=== PATIENT | male | born 1950 | race Caucasian/White ===

== ENCOUNTER → 2016-11-04 | Outpatient (REF) | payer MEDICARE, MEDICAID ==
[~2016-11-04] MED LIST: AMLO2.5T PO; ASPI1TAB PO; ATOR1TAB18 PO; BISO5TAB5 PO; ELIQ5TAB PO; METO25TAB PO; PLAV75TA38 PO; POTA10CA PO; PROA1AER INH
[2016-11-04 12:00] LABS: VITAMIN B12 LEVEL 371 PG/ML (247-911)
[2016-11-04 12:14] LABS: ALBUMIN 4.2 GM/DL (3.2-5.2); ALKALINE PHOSPHATASE 125 U/L (45-117); ALT/SGPT 30 U/L (12-78); ANION GAP 9 MEQ/L (8-16); AST/SGOT 22 U/L (15-37); BILIRUBIN,TOTAL 0.3 MG/DL (0.2-1.0); BLOOD UREA NITROGEN 22 MG/DL (7-18); CALCIUM LEVEL 9.5 MG/DL (8.8-10.2); CARBON DIOXIDE LEVEL 29 MEQ/L (21-32); CHLORIDE LEVEL 104 MEQ/L (98-107); CHOLESTEROL LEVEL 151 MG/DL (<200); CREATININE FOR GFR 1.57 MG/DL (0.70-1.30); FREE T4 0.87 NG/DL (0.76-1.46); GLOMERULAR FILTRATION RATE 47.3 (>49); GLUCOSE, FASTING 100 MG/DL (80-110); POTASSIUM SERUM 4.7 MEQ/L (3.5-5.1); SODIUM LEVEL 142 MEQ/L (136-145); TOTAL PROTEIN 7.7 GM/DL (6.4-8.2); TRIGLYCERIDES LEVEL 355 MG/DL (<150)
== END ==
LOC: M SFHCPLAZ 09:28
PROVIDERS: ATTEND Family Medicine
DX: E78.2 Mixed hyperlipidemia (principal); E55.9 Vitamin D deficiency, unspecified; E53.8 Deficiency of other specified B group vitamins
CPT/HCPCS: 36415; 80053; 80061; 82550; 82607; 83970; 84439; 84443; 86140; G0463

== ENCOUNTER → 2017-03-17 | Outpatient (REF) | payer MEDICARE, MEDICAID ==
[2017-03-17 13:28] LABS: BASO % 0.5 % (0.0-1.0); EOS # 0.2 K/mm3 (0.0-0.50); LARGE UNSTAINED CELL # 0.1 K/mm3 (0.0-0.4); LARGE UNSTAINED CELL % 2.1 % (0.0-4.0); LYMPH # 1.8 K/mm3 (1.5-4.5); LYMPH % 32.2 % (24.0-44.0); MEAN CORPUSCULAR HEMOGLOBIN 32.6 pg (27.0-33.0); MEAN CORPUSCULAR HGB CONC 33.6 g/dl (32.0-36.5); MONO # 0.3 K/mm3 (0.0-0.8); MONO % 5.8 % (0.0-5.0); NEUTROPHILS # 2.9 K/mm3 (1.8-7.7); NEUTROPHILS % 56.4 % (36.0-66.0); PLATELET COUNT, AUTOMATED 215 k/mm3 (150-450); RED CELL DISTRIBUTION WIDTH 13.9 % (11.5-14.5); WHITE BLOOD COUNT 5.1 K/mm3 (4.0-10.0)
[2017-03-17 13:40] LABS: ALBUMIN 3.9 GM/DL (3.2-5.2); ALBUMIN/GLOBULIN RATIO 1.03 (1.00-1.93); BILIRUBIN,TOTAL 0.3 MG/DL (0.2-1.0); CALCIUM LEVEL 9.4 MG/DL (8.8-10.2); CREATININE FOR GFR 1.46 MG/DL (0.70-1.30); GLOMERULAR FILTRATION RATE 51.4 (>49); POTASSIUM SERUM 4.6 MEQ/L (3.5-5.1); TOTAL PROTEIN 7.7 GM/DL (6.4-8.2)
== END ==
LOC: M SFHCPLAZ 10:49
PROVIDERS: ATTEND Family Medicine
DX: I12.9 Hypertensive chronic kidney disease with stage 1 through stage 4 chronic kidney disease, or unspecified chronic kidney disease (principal); N18.3 Chronic kidney disease, stage 3 (moderate); R73.01 Impaired fasting glucose
CPT/HCPCS: 80053; 83036; 83735; 83880; 83970; 85025; G0463

== ENCOUNTER → 2017-07-20 | Outpatient (REF) | payer MEDICARE, MEDICAID ==
[~2017-07-20] MED LIST changes: -ATOR1TAB18 PO; +ATOR80TA59 PO; +PLAV1TAB2 PO; -PLAV75TA38 PO; -PROA1AER INH; +PROAAER10 INH
[2017-07-20 14:01] LABS: BASO % 0.5 % (0.0-1.0); EOS # 0.2 10^3/uL (0.0-0.50); EOS % 2.7 % (0.0-3.0); IMMATURE GRANULOCYTE % 0.3 % (0-0); LYMPH # 1.7 10^3/uL (1.5-4.5); MEAN CORPUSCULAR HEMOGLOBIN 32.6 pg (27.0-33.0); MEAN CORPUSCULAR HGB CONC 33.4 g/dl (32.0-36.5); MEAN CORPUSCULAR VOLUME 97.4 fl (80.0-96.0); MONO # 0.4 10^3/uL (0.0-0.8); MONO % 7.5 % (0.0-5.0); NEUTROPHILS # 3.5 10^3/uL (1.8-7.7); PLATELET COUNT, AUTOMATED 250 10^3/uL (150-450); RED CELL DISTRIBUTION WIDTH 14.3 % (11.5-14.5); RETIC HEMOGLOBIN EQUIVALENT 38.8 pg (24-36); RETICULOCYTE % 1.5 % (0.5-1.5); WHITE BLOOD COUNT 5.9 10^3/uL (4.0-10.0)
[2017-07-20 14:16] LABS: VITAMIN B12 LEVEL 249 PG/ML (247-911)
[2017-07-20 14:43] LABS: ALBUMIN/GLOBULIN RATIO 1.11 (1.00-1.93); ALKALINE PHOSPHATASE 116 U/L (45-117); ALT/SGPT 33 U/L (12-78); ANION GAP 8 MEQ/L (8-16); AST/SGOT 25 U/L (15-37); BILIRUBIN,TOTAL 0.3 MG/DL (0.2-1.0); BLOOD UREA NITROGEN 24 MG/DL (7-18); CALCIUM LEVEL 9.3 MG/DL (8.8-10.2); CARBON DIOXIDE LEVEL 28 MEQ/L (21-32); CHLORIDE LEVEL 103 MEQ/L (98-107); CREATININE FOR GFR 1.58 MG/DL (0.70-1.30); GLOMERULAR FILTRATION RATE 46.8 (>49); GLUCOSE, FASTING 98 MG/DL (80-110); POTASSIUM SERUM 4.6 MEQ/L (3.5-5.1); SODIUM LEVEL 139 MEQ/L (136-145); TOTAL PROTEIN 7.6 GM/DL (6.4-8.2)
[2017-07-24 10:47] LABS: ALBUMIN 4.27 GM/DL (3.29-5.55); ALBUMIN % 56.2 % (55.8-66.1); GAMMA GLOBULIN % 16.8 % (11.1-18.8)
== END ==
LOC: M SFHCPLAZ 10:43
PROVIDERS: ATTEND Family Medicine
DX: R73.01 Impaired fasting glucose (principal); E53.8 Deficiency of other specified B group vitamins; Z12.5 Encounter for screening for malignant neoplasm of prostate
CPT/HCPCS: 80053; 81001; 82043; 82607; 83036; 83525; 84165; 85025; 85046; G0103

== ENCOUNTER → 2017-09-11 | Outpatient (CLI) | payer MEDICARE, MEDICAID ==
[2017-09-11 11:13] LABS: MEAN CORPUSCULAR HEMOGLOBIN 31.9 pg (27.0-33.0); MEAN CORPUSCULAR HGB CONC 32.8 g/dl (32.0-36.5); MEAN CORPUSCULAR VOLUME 97.2 fl (80.0-96.0); PLATELET COUNT, AUTOMATED 256 10^3/uL (150-450); RED CELL DISTRIBUTION WIDTH 14.1 % (11.5-14.5)
[2017-09-11 11:33] LABS: ALBUMIN 3.9 GM/DL (3.2-5.2); CALCIUM LEVEL 9.4 MG/DL (8.8-10.2); CREATININE FOR GFR 1.61 MG/DL (0.70-1.30); GLOMERULAR FILTRATION RATE 45.8 (>49); PHOSPHORUS LEVEL 2.8 MG/DL (2.5-4.9); POTASSIUM SERUM 4.3 MEQ/L (3.5-5.1)
== END ==
LOC: M LAB 10:48
PROVIDERS: ATTEND Nurse Practitioner Family
DX: I11.9 Hypertensive heart disease without heart failure (principal)

== ENCOUNTER → 2017-10-26 | Outpatient (REF) | payer MEDICARE, MEDICAID ==
[2017-10-26 16:09] LABS: BASO % 0.5 % (0.0-1.0); EOS # 0.1 10^3/uL (0.0-0.50); EOS % 2.2 % (0.0-3.0); HEMATOCRIT 37.6 % (42.0-52.0); HEMOGLOBIN 12.4 g/dl (14.0-18.0); IMMATURE GRANULOCYTE % 0.5 % (0-0); LYMPH # 1.8 10^3/uL (1.5-4.5); LYMPH % 29.6 % (24.0-44.0); MEAN CORPUSCULAR HEMOGLOBIN 32.1 pg (27.0-33.0); MEAN CORPUSCULAR VOLUME 97.4 fl (80.0-96.0); MONO # 0.6 10^3/uL (0.0-0.8); MONO % 9.3 % (0.0-5.0); NEUTROPHILS # 3.4 10^3/uL (1.8-7.7); NEUTROPHILS % 57.9 % (36.0-66.0); PLATELET COUNT, AUTOMATED 266 10^3/uL (150-450); RED BLOOD COUNT 3.86 10^6/uL (4.30-6.10); RED CELL DISTRIBUTION WIDTH 13.9 % (11.5-14.5); WHITE BLOOD COUNT 5.9 10^3/uL (4.0-10.0)
[2017-10-26 18:14] LABS: VITAMIN B12 LEVEL 555 PG/ML (247-911)
[2017-10-26 18:38] LABS: FERRITIN 121 NG/ML (26-388); IRON (FE) 83 UG/DL (65-175); PERCENT SATURATION 23.1 % (19.7-50.0); TOTAL IRON BINDING CAPACITY 359 UG/DL (250-450)
[2017-10-31 00:07] LABS: ANTI-PARIETAL CELL ANTIBODY 25.5 Units (0.0-20.0)
[2017-10-31 00:07] LABS: INTRINSIC FACTOR ANTIBODY 0.9 AU/mL (0.0-1.1)
== END ==
LOC: M SFHCPLAZ 12:03
DX: D64.9 Anemia, unspecified (principal)
CPT/HCPCS: 83550

== ENCOUNTER 2018-02-03 12:08 | Emergency (ER) | payer MEDICARE, MEDICAID | END 2018-02-03 13:03 | disposition home or self-care (01) | LOC: M ED 12:08 | DX: S29.012A Strain of muscle and tendon of back wall of thorax, initial encounter (principal); X58.XXXA Exposure to other specified factors, initial encounter; Y92.89 Other specified places as the place of occurrence of the external cause; I25.10 Atherosclerotic heart disease of native coronary artery without angina pectoris; I25.2 Old myocardial infarction; I10 Essential (primary) hypertension; J44.9 Chronic obstructive pulmonary disease, unspecified; Z95.5 Presence of coronary angioplasty implant and graft; Z87.891 Personal history of nicotine dependence; Z91.013 Allergy to seafood; Z88.0 Allergy status to penicillin; Z91.018 Allergy to other foods; Z79.01 Long term (current) use of anticoagulants; Z79.899 Other long term (current) drug therapy | CPT/HCPCS: 93005 ==

== ENCOUNTER 2018-02-19 06:11 | Emergency (ER) | payer MEDICARE, MEDICAID ==
[2018-02-19] MEDS: NORCO, ANEXSIA 5/325MG TABLET (HYDROcodone/ACETAMINOPHEN) PO (07:24)
== END 2018-02-19 07:30 | disposition home or self-care (01) ==
LOC: M ED 06:11
DX: S49.92XA Unspecified injury of left shoulder and upper arm, initial encounter (principal); X58.XXXA Exposure to other specified factors, initial encounter; Y92.89 Other specified places as the place of occurrence of the external cause; J44.9 Chronic obstructive pulmonary disease, unspecified; I25.2 Old myocardial infarction; I10 Essential (primary) hypertension; J45.909 Unspecified asthma, uncomplicated; Z95.5 Presence of coronary angioplasty implant and graft; F17.200 Nicotine dependence, unspecified, uncomplicated; Z88.0 Allergy status to penicillin; Z91.013 Allergy to seafood; Z91.018 Allergy to other foods; Z79.899 Other long term (current) drug therapy; Z79.01 Long term (current) use of anticoagulants; Z79.02 Long term (current) use of antithrombotics/antiplatelets
CPT/HCPCS: 73030

== ENCOUNTER → 2018-07-13 | Outpatient (REF) | payer MEDICARE, MEDICAID ==
[2018-07-13 12:02] LABS: BASO % 0.7 % (0.0-1.0); EOS # 0.2 10^3/uL (0.0-0.50); EOS % 3.2 % (0.0-3.0); HEMATOCRIT 39.3 % (42.0-52.0); HEMOGLOBIN 12.8 g/dl (13.5-17.5); IMMATURE GRANULOCYTE % 0.4 % (0-3.0); LYMPH # 1.6 10^3/uL (1.5-4.5); LYMPH % 28.5 % (24.0-44.0); MEAN CORPUSCULAR HEMOGLOBIN 32.9 pg (27.0-33.0); MEAN CORPUSCULAR HGB CONC 32.6 g/dl (32.0-36.5); MONO # 0.5 10^3/uL (0.0-0.8); MONO % 8.5 % (0.0-5.0); NEUTROPHILS # 3.3 10^3/uL (1.8-7.7); NEUTROPHILS % 58.7 % (36.0-66.0); PLATELET COUNT, AUTOMATED 278 10^3/uL (150-450); RED BLOOD COUNT 3.89 10^6/uL (4.30-6.10); RED CELL DISTRIBUTION WIDTH 13.8 % (11.5-14.5); RETIC HEMOGLOBIN EQUIVALENT 36.8 pg (24-36); RETICULOCYTE # 55.6 10^9/L (17-77); RETICULOCYTE % 1.4 % (0.5-1.5); WHITE BLOOD COUNT 5.6 10^3/uL (4.0-10.0)
[2018-07-13 12:12] LABS: APPEARANCE, URINE CLEAR (CLEAR); BACTERIA, URINE AUTO NEGATIVE (NEGATIVE); BILIRUBIN, URINE AUTO NEGATIVE (NEGATIVE); BLOOD, URINE BLOOD NEGATIVE (NEGATIVE); COLOR, URINE YELLOW (YELLOW); GLUCOSE, URINE (UA) AUTO NEGATIVE (NEGATIVE); KETONE, URINE AUTO NEGATIVE (NEGATIVE); LEUKOCYTE ESTERASE, URINE AUTO NEGATIVE (NEGATIVE); NITRITE, URINE AUTO NEGATIVE (NEGATIVE); PROTEIN, URINE AUTO NEGATIVE (NEGATIVE); RBC, URINE AUTO 0 /HPF (0-3); SPECIFIC GRAVITY URINE AUTO 1.014 (1.002-1.035); SQUAMOUS EPITHELIAL CELL UR AU 0 /HPF (0-6); UROBILINOGEN, URINE AUTO 0.2 mg/dL (0.0-2.0); WBC, URINE AUTO 0 /HPF (0-3)
[2018-07-13 12:42] LABS: ALBUMIN 4.1 GM/DL (3.2-5.2); ALBUMIN/GLOBULIN RATIO 1.11 (1.00-1.93); ALKALINE PHOSPHATASE 91 U/L (45-117); ALT/SGPT 40 U/L (12-78); ANION GAP 8 MEQ/L (8-16); AST/SGOT 26 U/L (7-37); BILIRUBIN,TOTAL 0.3 MG/DL (0.2-1.0); BLOOD UREA NITROGEN 19 MG/DL (7-18); CALCIUM LEVEL 9.7 MG/DL (8.8-10.2); CARBON DIOXIDE LEVEL 29 MEQ/L (21-32); CHLORIDE LEVEL 104 MEQ/L (98-107); CREATININE FOR GFR 1.38 MG/DL (0.70-1.30); GLOMERULAR FILTRATION RATE 54.7 (>49); GLUCOSE, FASTING 95 MG/DL (70-100); POTASSIUM SERUM 4.9 MEQ/L (3.5-5.1); PSA SCREENING 0.23 NG/ML (< 4.0); SODIUM LEVEL 141 MEQ/L (136-145); TOTAL PROTEIN 7.8 GM/DL (6.4-8.2)
[2018-07-13 12:47] LABS: PTH INTACT 53.4 PG/ML (18.5-88.0)
[2018-07-13 13:41] LABS: MALB URINE SIEMENS 17.9 MG/L
[2018-07-13 13:42] LABS: MAU/CREAT RATIO 13.3 MCG/MG (0.0-30.0)
[2018-07-13 14:45] LABS: ESTIMATED AVERAGE GLUCOSE 123 MG/DL (60-110); HEMOGLOBIN A1c 5.9 %
== END ==
LOC: M SFHCPLAZ 08:03
DX: E53.8 Deficiency of other specified B group vitamins (principal); E55.9 Vitamin D deficiency, unspecified; R73.01 Impaired fasting glucose; Z12.5 Encounter for screening for malignant neoplasm of prostate
CPT/HCPCS: 82607

== ENCOUNTER → 2018-12-04 | Outpatient (REF) | payer MEDICARE, MEDICAID ==
[~2018-12-04] MED LIST changes: +ACET30TAB PO; -AMLO2.5T PO; +AMLO2.5T3 PO; +BREO1INH3; +CLOP75TA2; +CYCL5TAB PO; +KLOR10TA76 PO; +NORCOTAB PO; -POTA10CA PO
[2018-12-04 12:09] LABS: BASO % 0.5 % (0.0-1.0); EOS # 0.2 10^3/uL (0.0-0.50); EOS % 3.7 % (0.0-3.0); HEMATOCRIT 38.3 % (42.0-52.0); LYMPH # 1.5 10^3/uL (1.5-4.5); LYMPH % 26.1 % (24.0-44.0); MEAN CORPUSCULAR HEMOGLOBIN 32.4 pg (27.0-33.0); MEAN CORPUSCULAR HGB CONC 33.9 g/dl (32.0-36.5); MEAN CORPUSCULAR VOLUME 95.5 fl (80.0-96.0); MONO # 0.6 10^3/uL (0.0-0.8); MONO % 9.9 % (0.0-5.0); NEUTROPHILS # 3.4 10^3/uL (1.8-7.7); NEUTROPHILS % 59.3 % (36.0-66.0); PLATELET COUNT, AUTOMATED 311 10^3/uL (150-450); RED BLOOD COUNT 4.01 10^6/uL (4.30-6.10); WHITE BLOOD COUNT 5.8 10^3/uL (4.0-10.0)
[2018-12-04 12:35] LABS: HEMATOCRIT 38.3 % (42.0-52.0)
[2018-12-04 12:43] LABS: HEMOGLOBIN A1c 6.5 %
[2018-12-04 12:54] LABS: ALT/SGPT 40 U/L (12-78); BLOOD UREA NITROGEN 22 MG/DL (7-18); CALCIUM LEVEL 9.2 MG/DL (8.8-10.2); CARBON DIOXIDE LEVEL 28 MEQ/L (21-32); CHLORIDE LEVEL 101 MEQ/L (98-107); GLOMERULAR FILTRATION RATE 49.5 (>49); GLUCOSE, FASTING 94 MG/DL (70-100); POTASSIUM SERUM 4.6 MEQ/L (3.5-5.1); PTH INTACT 60.5 PG/ML (18.5-88.0); SODIUM LEVEL 138 MEQ/L (136-145)
[2018-12-04 12:55] LABS: BILIRUBIN,TOTAL 0.2 MG/DL (0.2-1.0); FREE T4 0.86 NG/DL (0.76-1.46); TOTAL PROTEIN 7.8 GM/DL (6.4-8.2); VITAMIN B12 LEVEL 1980 PG/ML (247-911)
[2018-12-06 13:07] LABS: ALBUMIN 4.49 GM/DL (3.29-5.55); ALBUMIN % 57.6 % (55.8-66.1); ALPHA-1-GLOBULIN % 3.5 % (2.9-4.9); ALPHA-1-GLOBULINS 0.27 GM/DL (0.17-0.41); ALPHA-2-GLOBULINS 0.81 GM/DL (0.42-0.99); ALPHA-2-GLOBULINS % 10.4 % (7.1-11.8); BETA-1-GLOBULINS 0.48 GM/DL (0.28-0.60); BETA-1-GLOBULINS % 6.2 % (4.7-7.2); BETA-2-GLOBULINS 0.51 GM/DL (0.19-0.55); BETA-2-GLOBULINS % 6.5 % (3.2-6.5); GAMMA GLOBULIN % 15.8 % (11.1-18.8); GAMMA GLOBULINS 1.23 GM/DL (0.65-1.58)
== END ==
LOC: M SFHCPLAZ 08:17
PROVIDERS: ATTEND Family Medicine
DX: D75.89 Other specified diseases of blood and blood-forming organs (principal); N18.3 Chronic kidney disease, stage 3 (moderate); E78.2 Mixed hyperlipidemia; R73.01 Impaired fasting glucose; E53.8 Deficiency of other specified B group vitamins

== ENCOUNTER 2019-06-23 09:06 | Emergency (ER) | payer MEDICARE, MEDICAID ==
[~2019-06-23] VITALS: Ht 165.1 cm; Wt 96.8 kg
[~2019-06-23 09:06] MED LIST changes: +ACET-716 PO; -ACET30TAB PO; -ASPI1TAB PO; +ASPI81TA26 PO; -BISO5TAB5 PO; +BISO5TAB9 PO; +HYDR-3715 PO; +METO1TAB63 PO; -METO25TAB PO; -NORCOTAB PO
[2019-06-23] MEDS ORDERED: ACETAMINOPHEN *IV* 1,000 MG in IV 1 EA IV ONE (09:30)
[2019-06-23] MEDS ORDERED: METF750T36 PO (09:36)
[2019-06-23] MEDS ORDERED: CALC1CAP31 PO (09:36)
[2019-06-23] MEDS ORDERED: AMLO10TA5 PO (09:36)
[2019-06-23] MEDS ORDERED: TOPR50TA PO (09:36)
[2019-06-23] MEDS ORDERED: NITR0.4S14 SL (09:36)
[2019-06-23 10:05] LABS: BASO % 0.3 % (0.0-1.0); EOS # 0.3 10^3/uL (0.0-0.5); EOS % 2.9 % (0.0-3.0); HEMATOCRIT 39.1 % (42.0-52.0); HEMOGLOBIN 13.1 g/dl (13.5-17.5); LYMPH # 1.4 10^3/uL (1.5-5.0); LYMPH % 15.1 % (24.0-44.0); MEAN CORPUSCULAR HEMOGLOBIN 32.4 pg (27.0-33.0); MEAN CORPUSCULAR HGB CONC 33.5 g/dl (32.0-36.5); MEAN CORPUSCULAR VOLUME 96.8 fl (80.0-96.0); MONO # 0.7 10^3/uL (0.0-0.8); MONO % 7.7 % (0.0-5.0); NEUTROPHILS # 6.9 10^3/uL (1.5-8.5); NEUTROPHILS % 73.6 % (36.0-66.0); PLATELET COUNT, AUTOMATED 281 10^3/uL (150-450); RED BLOOD COUNT 4.04 10^6/uL (4.30-6.10); WHITE BLOOD COUNT 9.4 10^3/uL (4.0-10.0)
[2019-06-23] MEDS ORDERED: CLEO300C2 PO (11:34)
[2019-06-23 11:46] VITALS: BP 164/82
== END 2019-06-23 12:07 | disposition home or self-care (01) ==
LOC: M ED 09:06
DX: K02.9 Dental caries, unspecified (principal); I10 Essential (primary) hypertension; J44.9 Chronic obstructive pulmonary disease, unspecified; J45.909 Unspecified asthma, uncomplicated; I25.10 Atherosclerotic heart disease of native coronary artery without angina pectoris; Z79.899 Other long term (current) drug therapy; Z79.01 Long term (current) use of anticoagulants; Z88.0 Allergy status to penicillin; F17.210 Nicotine dependence, cigarettes, uncomplicated
CPT/HCPCS: 80047; 85025; 96374; 99284; J0131

== ENCOUNTER → 2019-07-12 | Outpatient (REF) | payer MEDICARE, MEDICAID ==
[~2019-07-12] MED LIST changes: +AMLO10TA5 PO; +CALC1CAP31 PO; +CLEO300C2 PO; +METF750T36 PO; +NITR0.4S14 SL; +TOPR50TA PO
[2019-07-12 10:42] LABS: BASO # 0.1 10^3/uL (0.0-0.2); BASO % 0.7 % (0.0-1.0); EOS # 0.5 10^3/uL (0.0-0.5); EOS % 6.5 % (0.0-3.0); HEMATOCRIT 38.1 % (42.0-52.0); HEMOGLOBIN 12.6 g/dl (13.5-17.5); LYMPH # 2.2 10^3/uL (1.5-5.0); LYMPH % 30.8 % (24.0-44.0); MEAN CORPUSCULAR HEMOGLOBIN 32.3 pg (27.0-33.0); MEAN CORPUSCULAR HGB CONC 33.1 g/dl (32.0-36.5); MEAN CORPUSCULAR VOLUME 97.7 fl (80.0-96.0); MONO # 0.6 10^3/uL (0.0-0.8); MONO % 8.2 % (0.0-5.0); NEUTROPHILS # 3.7 10^3/uL (1.5-8.5); NEUTROPHILS % 53.4 % (36.0-66.0); PLATELET COUNT, AUTOMATED 278 10^3/uL (150-450)
[2019-07-12 11:57] LABS: ALBUMIN 3.8 GM/DL (3.2-5.2); ALT/SGPT 44 U/L (12-78); BILIRUBIN,TOTAL 0.9 MG/DL (0.2-1.0); BLOOD UREA NITROGEN 24 MG/DL (7-18); C REACTIVE PROTEIN QUANTITATIV 0.42 MG/DL (0.00-0.30); CALCIUM LEVEL 9.3 MG/DL (8.8-10.2); CARBON DIOXIDE LEVEL 27 MEQ/L (21-32); CHLORIDE LEVEL 103 MEQ/L (98-107); CHOLESTEROL LEVEL 187 MG/DL (<200); CHOLESTEROL RISK RATIO 4.675 (<5); CPK CREATINE PHOSPHOKINASE 143 U/L (39-308); FREE T4 0.79 NG/DL (0.76-1.46); GLOMERULAR FILTRATION RATE 53.7 (>49); GLUCOSE, FASTING 97 MG/DL (70-100); HDL CHOLESTEROL 40 MG/DL (>40); NON-HDL-C 147 MG/DL; POTASSIUM SERUM 4.5 MEQ/L (3.5-5.1); SODIUM LEVEL 140 MEQ/L (136-145); TOTAL PROTEIN 7.6 GM/DL (6.4-8.2); TRIGLYCERIDES LEVEL 735 MG/DL (<150)
[2019-07-12 12:14] LABS: HEMOGLOBIN A1c 5.9 %
== END ==
LOC: M SFHCPLAZ 08:07
PROVIDERS: ATTEND Family Medicine
DX: R73.01 Impaired fasting glucose (principal); E78.2 Mixed hyperlipidemia

== ENCOUNTER → 2019-11-11 | Outpatient (CLI) | payer MEDICARE, MEDICAID ==
[~2019-11-11] MED LIST changes: +BISO5TAB14 PO; -BISO5TAB9 PO
[2019-11-11 14:22] LABS: BASO % 0.6 % (0.0-1.0); EOS # 0.2 10^3/uL (0.0-0.5); EOS % 3.1 % (0.0-3.0); HEMATOCRIT 40.7 % (42.0-52.0); LYMPH % 28.1 % (24.0-44.0); MEAN CORPUSCULAR HEMOGLOBIN 31.3 pg (27.0-33.0); MEAN CORPUSCULAR HGB CONC 31.9 g/dl (32.0-36.5); MEAN CORPUSCULAR VOLUME 97.8 fl (80.0-96.0); MONO # 0.5 10^3/uL (0.0-0.8); MONO % 7.3 % (0.0-5.0); NEUTROPHILS # 4.3 10^3/uL (1.5-8.5); NEUTROPHILS % 60.3 % (36.0-66.0); PLATELET COUNT, AUTOMATED 276 10^3/uL (150-450); RED BLOOD COUNT 4.16 10^6/uL (4.30-6.10); WHITE BLOOD COUNT 7.1 10^3/uL (4.0-10.0)
[2019-11-11 14:27] LABS: ALBUMIN 4.1 GM/DL (3.2-5.2); ALT/SGPT 27 U/L (12-78); BILIRUBIN,TOTAL 0.3 MG/DL (0.2-1.0); BLOOD UREA NITROGEN 22 MG/DL (7-18); CALCIUM LEVEL 9.4 MG/DL (8.8-10.2); CARBON DIOXIDE LEVEL 30 MEQ/L (21-32); CHLORIDE LEVEL 103 MEQ/L (98-107); CHOLESTEROL LEVEL 151 MG/DL (<200); CHOLESTEROL RISK RATIO 4.194 (<5); CREATININE FOR GFR 1.49 MG/DL (0.70-1.30); GLOMERULAR FILTRATION RATE 49.8 (>49); GLUCOSE, FASTING 91 MG/DL (70-100); HDL CHOLESTEROL 36 MG/DL (>40); NON-HDL-C 115 MG/DL; POTASSIUM SERUM 4.4 MEQ/L (3.5-5.1); SODIUM LEVEL 138 MEQ/L (136-145); TOTAL PROTEIN 7.8 GM/DL (6.4-8.2); TRIGLYCERIDES LEVEL 442 MG/DL (<150)
[2019-11-11 14:31] LABS: PTH INTACT 74.1 PG/ML (18.5-88.0)
[2019-11-11 14:46] LABS: HEMOGLOBIN A1c 6.4 %
[2019-11-11 15:30] LABS: ERYTHROCYTE SEDIMENTATION RATE 15 mm/hr (0-20)
== END ==
LOC: M PLALAB 09:32
PROVIDERS: ATTEND Family Medicine
DX: Z12.5 Encounter for screening for malignant neoplasm of prostate (principal); D75.89 Other specified diseases of blood and blood-forming organs; R73.01 Impaired fasting glucose; E55.9 Vitamin D deficiency, unspecified; Z79.51 Long term (current) use of inhaled steroids; Z79.899 Other long term (current) drug therapy
CPT/HCPCS: 36415; 80053; 80061; 83036; 83525; 83970; 85025; 85652; G0103

== ENCOUNTER → 2020-04-01 | Outpatient (CLI) | payer MEDICARE, MEDICAID ==
[~2020-04-01] MED LIST changes: -AMLO10TA5 PO; +AMLO1TAB25 PO
[2020-04-01 12:38] LABS: BASO % 0.3 % (0.0-1.0); EOS # 0.2 10^3/uL (0.0-0.5); EOS % 2.5 % (0.0-3.0); HEMOGLOBIN 12.2 g/dl (13.5-17.5); LYMPH % 27.6 % (24.0-44.0); MEAN CORPUSCULAR HEMOGLOBIN 32.2 pg (27.0-33.0); MEAN CORPUSCULAR VOLUME 97.6 fl (80.0-96.0); MONO # 0.6 10^3/uL (0.0-0.8); MONO % 7.7 % (0.0-5.0); NEUTROPHILS # 4.5 10^3/uL (1.5-8.5); NEUTROPHILS % 61.5 % (36.0-66.0); PLATELET COUNT, AUTOMATED 262 10^3/uL (150-450); RED BLOOD COUNT 3.79 10^6/uL (4.30-6.10); WHITE BLOOD COUNT 7.3 10^3/uL (4.0-10.0)
[2020-04-01 13:20] LABS: ALT/SGPT 32 U/L (12-78); BILIRUBIN,TOTAL 0.3 MG/DL (0.2-1.0); BLOOD UREA NITROGEN 27 MG/DL (7-18); C REACTIVE PROTEIN QUANTITATIV < 0.30 MG/DL (0.00-0.30); CALCIUM LEVEL 9.6 MG/DL (8.8-10.2); CARBON DIOXIDE LEVEL 28 MEQ/L (21-32); CHLORIDE LEVEL 103 MEQ/L (98-107); CHOLESTEROL LEVEL 154 MG/DL (<200); CHOLESTEROL RISK RATIO 4.529 (<5); CPK CREATINE PHOSPHOKINASE 136 U/L (39-308); FREE T4 0.99 NG/DL (0.76-1.46); GLOMERULAR FILTRATION RATE 49.4 (>49); GLUCOSE, FASTING 83 MG/DL (70-100); HDL CHOLESTEROL 34 MG/DL (>40); NON-HDL-C 120 MG/DL; POTASSIUM SERUM 4.6 MEQ/L (3.5-5.1); SODIUM LEVEL 137 MEQ/L (136-145); TOTAL PROTEIN 7.8 GM/DL (6.4-8.2); TRIGLYCERIDES LEVEL 459 MG/DL (<150); VITAMIN B12 LEVEL 366 PG/ML (247-911)
[2020-04-01 13:40] LABS: HEMOGLOBIN A1c 6.1 %
== END ==
LOC: M PLALAB 09:21
PROVIDERS: ATTEND Family Medicine
DX: E78.2 Mixed hyperlipidemia (principal); E53.8 Deficiency of other specified B group vitamins; E55.9 Vitamin D deficiency, unspecified; R73.01 Impaired fasting glucose; E03.9 Hypothyroidism, unspecified

== ENCOUNTER → 2020-09-15 | Outpatient (REF) | payer MEDICARE, MEDICAID ==
[2020-09-15 14:19] LABS: ALBUMIN 3.9 GM/DL (3.2-5.2); ALT/SGPT 47 U/L (12-78); BILIRUBIN,TOTAL 0.3 MG/DL (0.2-1.0); BLOOD UREA NITROGEN 27 MG/DL (7-18); CARBON DIOXIDE LEVEL 31 MEQ/L (21-32); CHLORIDE LEVEL 104 MEQ/L (98-107); CHOLESTEROL LEVEL 183 MG/DL (<200); CHOLESTEROL RISK RATIO 4.945 (<5); CREATININE FOR GFR 1.53 MG/DL (0.70-1.30); GLOMERULAR FILTRATION RATE 48.1 (>42); GLUCOSE, FASTING 94 MG/DL (70-100); HDL CHOLESTEROL 37 MG/DL (>40); NON-HDL-C 146 MG/DL; PHOSPHORUS LEVEL 3.9 MG/DL (2.5-4.9); POTASSIUM SERUM 4.4 MEQ/L (3.5-5.1); SODIUM LEVEL 138 MEQ/L (136-145); THYROID PEROXIDASE ANTIBODY 76.9 U/ML (<60.0); TOTAL PROTEIN 7.8 GM/DL (6.4-8.2); TRIGLYCERIDES LEVEL 513 MG/DL (<150)
== END ==
LOC: M PLALAB 09:27
PROVIDERS: ATTEND Family Medicine
DX: E78.2 Mixed hyperlipidemia (principal); R73.01 Impaired fasting glucose

== ENCOUNTER 2020-12-11 11:11 | Emergency (ER) | payer MEDICARE, MEDICAID ==
[~2020-12-11] VITALS: Ht 160 cm; Wt 103.2 kg
--- OUTSIDE RECORDS SUMMARY | 2020-12-11 11:21 | CCD ---
Continuity of Care Document (CCD) Created on: 11/06/2020 Fasutino Dupont External Reference #: [id number] : [id number] Sex: Male Author Author Faustino MARCIAL MD Organization Unknown Address [facility] [place] [address] Phone [phone] Care Team Providers Care Drier Name Role Phone Greg Montiel MD AUTM [phone] Eugene Dai MD AUTM [phone] Reynaldo George MD AUTM [phone] Problems Active Problems Provider Date Patient post percutaneous transluminal coronary angiop lasty ARIELLE Escudero Onset: 02/23/2018 Paroxysmal atrial fibrillation ARIELLE Escudero Onset: 0 02/23/2018 Electrocardiogram abnormal ARIELLE Escudero Onset: 02/23 Mitral valve disorder ARIELLE Escudero Onset: 02/23/2018 Obesity ARIELLE Escudero Onset: 02/23/2018 Dietary management surveillance ARIELLE Escudero Onset: 02/23/2018 Atherosclerotic heart disease of [place] coronary arter y without angina pectoris ARIELLE Escudero Onset: 02/23/2018 Hypertensive heart disease without heart failure ARIELLE Perez Onset: 02/23/2018 Social History Type Date Description Comments Sex Unknown ETOH Use Occasionally consumes wine Tobacco Use Start: Unknown Heavy tobacco smoker (more than 10 cigarettes/day) quit smoking in 2014, prior 25 years 1ppd Tobacco Use Start: Unknown End: Unknown Patient is a former smoker Smoking Status Reviewed: 05/04/20 Patient is a former smoker Exercise Type/Frequency Does housework daily Exercise Type/Frequency Walks 5 times a week an hour at a time Exercise Limitations None Exercise Limitations Shortness Of Breath Allergies, Adverse Reactions, Alerts Active Allergies Reaction Severity Comments Date Penicillins rash 11/13/2007 Fish-derived Products 2019 Medications Active Medications SIG Qnty Indications Ordering Provide r Date Crestor 40mg Tablets 1 by mouth every day at bedtime Unknown 10/12/2020 Januvia 50mg Tablets 1 by mouth every day Unknown 05/03/2020 Ezetimibe 10mg Tablets 1 by mouth every day 90tabs I25.10 Faustino Marcial MD 08/27/2019 Metformin HCL ER 750mg Tablets ER 24HR 1 by mouth twice every day Greg Montiel MD 019 Levothyroxine Sodium 25mcg Tablets 1 by mouth every day Greg Montiel MD 08/26/2019 Amlodipine Besylate 10mg Tablets Take One Tablet By Mouth Once Daily 90tabs Faustino Marcial MD Metoprolol Tartrate 50mg Tablets 1 by mouth twice a day Unknown 02/24/2019 Breo Ellipta 200-25mcg/Inh Aerosol 1 puff daily as directed Greg Montiel MD 03/21/2017 Plavix 75mg Tablets 1 PO Radha y Greg Montiel MD 03/16/2016 Potassium Chloride ER 10Meq Capsul es ER 1 by mouth every day Unknown 02/09/2016 Eliquis 5mg Tablets 1 by mouth twice a day Unknown 02/09/2016 Proair HFA 108(90Base) mcg/Act Aer osol 2 puffs by mouth as needed Unknown 016 Nitrostat 0.4mg Tablets Sub 1 sl every 5min x3 as needed for chest pain 5bottles Faustino Marcial MD 05/12/2014 Immunizations Description No Information Available Vital Signs Date Vital Result Comment 05/04/2020 9:38am Weight 220.00 lb Height 63 inches 5'3" BMI (Body Mass Index) 39.0 kg/m2 BP Systolic Sitting 124 mmHg BP Diastolic Sitting 72 mmHg 08/27/2019 10:07am Weight 215.00 lb Height 63 inches 5'3" BMI (Body Mass Index) 38.1 kg/m2 Heart Rate 63 /min BP Systolic Sitting 126 mmHg large cuff, Ra BP Diastolic Sitting 80 mmHg large cuff, Ra Results Description No Information Available Procedures Date Code Description Status 06/15/2020 58782 Treadmill/Pharmacological Monito ring Completed 06/15/2020 11604 Myocardial Perfusion Spect Multi ple Completed Medical Devices Description No Information Available Encounters Type Date Location Provider Dx Diagnosis Office Visit 09/03/2020 4:05p Main Office Faustino Marcial MD I34.0 Nonrheumatic mitral (valve) insufficiency I48.0 Paroxysmal atrial fibrillati on E66.9 Obesity, unspecified Office Visit 07/31/2020 3:27p Main Office Faustino Marcial MD I34.0 Nonrheumatic mitral (valve) insufficiency I48.0 Paroxysmal atrial fibrillati on E66.9 Obesity, unspecified Office Visit 07/03/2020 10:50a Main Office Faustino Marcial MD I34.0 Nonrheumatic mitral (valve) insufficiency I48.0 Paroxysmal atrial fibrillati on E66.9 Obesity, unspecified Office Visit 06/02/2020 11:49a Main Office Faustino Marcial MD I34.0 Nonrheumatic mitral (valve) insufficiency I48.0 Paroxysmal atrial fibrillati on E66.9 Obesity, unspecified I11.9 Hypertensive heart disease w [facility] heart failure Assessments Date Code Description Provider 10/13/2020 I48.0 Paroxysmal atrial fibrillation Aamn Marcial MD 10/13/2020 E66.9 Obesity, unspecified Faustino mcfarlane MD 10/13/2020 I34.0 Nonrheumatic mitral (valve) insu fficiency Faustino Marcial MD 09/03/2020 I34.0 Nonrheumatic mitral (valve) insu fficiency Faustino Marcial MD 09/03/2020 I48.0 Paroxysmal atrial fibrillation Aman Marcial MD 09/03/2020 E66.9 Obesity, unspecified Faustino mcfarlane MD 07/31/2020 I34.0 Nonrheumatic mitral (valve) insu fficiency Faustino Marcial MD 07/31/2020 I48.0 Paroxysmal atrial fibrillation Aman Marcial MD 07/31/2020 E66.9 Obesity, unspecified Faustino mcfarlane MD 07/03/2020 I34.0 Nonrheumatic mitral (valve) insu fficiency Faustino Marcial MD 07/03/2020 I48.0 Paroxysmal atrial fibrillation Aman Marcial MD 07/03/2020 E66.9 Obesity, unspecified Faustino mcfarlane MD 06/15/2020 I25.10 Atherosclerotic heart disease of [place] coronary artery with Stress Nuclear/Reg Treadmill 06/02/2020 I34.0 Nonrheumatic mitral (valve) insu fficiency Faustino Marcial MD 06/02/2020 I48.0 Paroxysmal atrial fibrillation Aman asmita Marcial MD 06/02/2020 E66.9 Obesity, unspecified Faustino mcfarlane MD 06/02/2020 I11.9 Hypertensive heart disease witho ut heart failure Faustino Marcial MD Plan of Treatment Future Appointment(s):* 11/11/2020 11:15 am - ARIELLE Villegas at Main Office 05/04/2020 - ARIELLE Escudero* I11.9 Hypertensive heart disease without heart failure* Recommendations:* No medication changes were made today. * I34.0 Nonrheumatic mitral (valve) insufficiency* Recommendations:* No further workup required at this time. * I48.0 Paroxysmal atrial fibrillation* Recommendations:* Please call the office if you have any sustained episodes of tachycardia (heart rate above 110 bpm at rest) or palpitations. * I25.10 Atherosclerotic heart disease of [place] coronary artery with* Recommendations:* Please call the office with any exertional chest pain or shortness of breath. Please schedule stress test. * R94.31 Abnormal electrocardiogram [ECG] [EKG]* Recommendations:* No significant change. No further workup required. * E66.9 Obesity, unspecified * Z71.3 Dietary counseling and surveillance* Recommendations:* Recommend adopting a more whole foods, plant-based diet in addition to moderate exercise a minimum of 30 minutes 6 days a week. In order to optimize cardiovascular health please be conscious of processed foods, alcohol (no more than two dr inks a day for men and one drink a day for women), salt (<2000 mg/d), oils, saturated fat/animal products, and highly refined carbohydrates such as breads, pastas, and sweets. * All * Follow up:* Follow up in 6 months. Functional Status Functional Condition Comment Date Status Independent with all ADL's Activ e Mental Status Description No Information Available Referrals Refer to Reason for Referral Status Appt Date Mesfin Chen MD [facility] AUTH EMR - EXPIRES 07/10/20. [place] Create d [id number] [facility], [facility] [place] [id number] [phone]
--- OUTSIDE RECORDS SUMMARY | 2020-12-11 11:21 | CCD ---
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 Active 2 40019474944847 Problem Impaired fasting glucose R73.01 Active 0147491 07 Problem CKD (chronic kidney disease) stage 3, GFR 30-59 ml/min N18.3 Active 562584024 Problem Prostate cancer screening Z12.5 Active 945112 005 Problem Vitamin D deficiency E55.9 Active 72651945 Problem B12 deficiency E53.8 Active 327568638 Problem Acquired hypothyroidism E03.9 Active 93139419 2 Problem Mixed hyperlipidemia E78.2 Active 739369049 Problem Cigarette nicotine dependence in remission F17.211 Active 904627327 Problem Essential (primary) hypertension I10 Active 82139522 Problem COPD (chronic obstructive pulmonary disease) J44.9 Active 48856260 Problem Atrial fibrillation I48.91 Active 88686659 Problem Colon cancer screening Z12.11 Active 025297815 Problem Macrocytosis D75.89 Active 662366451 ALLERGIES Allergen (clinical drug ingredient) Drug/Non Drug Allergy do cumented on EMR Reaction Allergy Type Onset Date Status Penicillin (For Allergies Use Only) Rash Drug Allerg y Active ENCOUNTERS from 1950 to 2020-10-06 Encounter Location Date Provider Diagnosis [address] [address] Sep, 020 Greg Montiel IMMUNIZATIONS Vaccine Route Administration Date Status Influenza (18 yrs & older) Flublok IM Intramuscular Sep 29, 2020 Administered Influenza (18 yrs & older) Flublok IM Intramuscular Aug 13, 2019 Administered Influenza (18 yrs & older) Flublok IM Intramuscular Jul 19, 2018 Administered Influenza (High Dose 65 & up) IM Intramuscular Jul 17, 2017 A dministered Influenza (High Dose 65 & up) IM Intramuscular Aug 18, 2015 A dministered Pneumococcal Adult 0.5mL (Pneumovax 23) Unknown Oct 30, 2009 Administered Pneumococcal 0.5mL (Prevnar 13) IM Intramuscular January 19, 2016 Administered Influenza (6mo & up) Fluzone IM Intramuscular Aug 26, 2014 Ad ministered Influenza (6mo & up) Fluzone Unknown Aug 27, 2012 Adm inistered SOCIAL HISTORY Sex Assigned At : Social History Observation Description Sex Assigned At Unknown Audit Question Answer Notes Total Score: 0 Interpretation: Alcohol Education Language: Question Answer Notes Languages spoken: Estonian Zoroastrian: Question Answer Notes Zoroastrian 21 Hinduism Sexual Hx: Question Answer Notes Had sex in the last 12 months (vaginal, oral, or anal)? No Have you ever had an STD? No Drug and Alcohol Question Answer Notes Total Score: 0 Interpretation: No problems reported Alcohol Screening: Question Answer Notes Did you have a drink containing alcohol in the past year? Ye s Points 2 Interpretation Negative How often did you have six or more drinks on one occas ion in the past year? Less than monthly (1 point) How many drinks did you have on a typica l day when you were drinking in the past year? 1 or 2 (0 points) How often did you have a drink containing alcohol in t he past year? Monthly or less (1 point) BMI Care Goal Follow-Up Question Answer Notes Above Normal BMI Follow-Up Giving encouragement to exercise REASON FOR REFERRAL No Information VITAL SIGNS No information MEDICATIONS Medication SIG (Take, Route, Frequency, Duration) Notes Start Da te End Date Status AmLODIPine Besylate 5 MG 1 tablet Orally every morning for 30 day(s) Active Breo Ellipta 200-25 MCG/INH 1 puff Inhalation Once a day for 30 Active Ezetimibe 10 MG 1 tablet Orally Once a day for 30 Days Active Potassium Chloride CR 10 MEQ ER 1 tab(s) orally Once a day for 30 day (s) Active Metoprolol Tartrate 50 MG 1 tablet with food Orally Twice a day for 30 day(s) Active Apixaban 5 MG 1 strip Orally bid for 30 day(s) Active Breo Ellipta 200-25 MCG/INH 1 puff Inhalation Once a day for 30 day(s ) Active Sitagliptin Phosphate 50 MG 1 tablet Orally Once a day for 90 day(s) Active Clopidogrel Bisulfate 75 MG 1 tablet Orally Once a day for 30 Active Atorvastatin Calcium 80 MG 1 tablet Orally Once a day for 90 days Active Cyanocobalamin 250 MCG 1 tablet Orally Once a day for 30 day(s) Active MetFORMIN HCl ER 750 MG 1 tab Orally AC BID for 30 day(s) Active Rosuvastatin Calcium 40 MG 1 tablet Orally Once a day for 30 day (s) Sep, Active Calcitriol 0.25 MCG 1 capsule Orally every other day for 30 Active Levothyroxine Sodium 25 MCG 1 tablet on an empty stoma ch in the morning Orally Once a day for 30 day(s) Active Clopidogrel Bisulfate 75 MG 1 tablet Orally Once a day for 30 day(s) Active ProAir HFA 108 (90 Base) MCG/ACT 2 puffs as needed Inh alation every 6 hrs prn dyspnea for 30 day(s) Active ProAir HFA 108 (90 Base) MCG/ACT 2 puffs as needed Inh alation every 6 hrs prn dyspnea for 25 Active PROCEDURES No Information RESULTS No Results REASON FOR VISIT No Information MEDICAL (GENERAL) HISTORY Type Description Date Medical History CAD status post CABG times 16 December 2008 with postoperative atrial fibrillation//s/p IWSTEMI 02/05/14 (presenting troponin 0.3) s/p thrombolysis and ELIAZAR of OM1 and L circumflex, 1 of 3 grafts patent (OMID to LAD)-Malaika//01/2016 DPST-intermediate risk, fixed inferior defect-[place] Medical History hyperlipidemia 2B Medical History GERD Medical History impaired fasting glucose Medical History hypertension-borderline LAE, mild PHTH, , mild MR by 01/2016 TTE-[place] Medical History chronic kidney disease stage 3-04/2015 mild B kidney atrophy, R 99, L 109 by 04/2015 [place] (03/2011 110 and 119 repsectively) Medical History COPD- 10/2012 FEV1 920 cc (33 %)/ratio 69%/asthma mild intermittent Medical History vitamin D deficiency Medical History NAFLD-seen by 08/2014 [place] Medical History B carotid ICA 16-49% narrowing by 01/2016 [place] Medical History atrial fibrilllation, [id number] et 01/2016 Medical History B12 deficiency-10/2017 parietal Ab 26 (0- 20), IF Ab 0.9 (0-1.1) Medical History ho nicotine use disorder-33 PY-1PPD 25-5 8 Surgical History triple bypass 2006 Surgical History Bilateral eye muscle repair Surgical History B cateract-[place] 03/2012 Hospitalization History syncope, favoring cough-uday colt 2 URI, new-onset AF, CT head NAD 01/25-01/29/16 Goals Section No Information Health Concerns No Information MEDICAL EQUIPMENT No Information MENTAL STATUS No Information FUNCTIONAL STATUS No Information ASSESSMENTS No Information PLAN OF TREATMENT Medication Medication Name Sig Start Date Stop Date Breo Ellipta 200-25 MCG/INH 1 puff Inhalation Once a day for 30 day(s) Clopidogrel Bisulfate 75 MG 1 tablet Orally Once a day for 30 da y(s) Apixaban 5 MG 1 strip Orally bid for 30 day(s) Sitagliptin Phosphate 50 MG 1 tablet Orally Once a day for 90 da y(s) Rosuvastatin Calcium 40 MG 1 tablet Orally Once a day for 30 day(s) Sep, Levothyroxine Sodium 25 MCG 1 tablet on an empty stoma ch in the morning Orally Once a day for 30 day(s) ProAir HFA 108 (90 Base) MCG/ACT 2 puffs as needed Inh alation every 6 hrs prn dyspnea for 30 day(s) MetFORMIN HCl ER 750 MG 1 tab Orally AC BID for 30 day(s) Cyanocobalamin 250 MCG 1 tablet Orally Once a day for 30 day(s) Potassium Chloride CR 10 MEQ ER 1 tab(s) orally Once a day for 3 0 day(s) AmLODIPine Besylate 5 MG 1 tablet Orally every morning for 30 da y(s) Ezetimibe 10 MG 1 tablet Orally Once a day for 30 Days Metoprolol Tartrate 50 MG 1 tablet with food Orally Twice a day for 30 day(s) Next Appt Details Provider Name:Greg Montiel, 2020-11-16 0 8:45:00 AM, [address] [place] [address], [phone], Provider Name:Greg Montiel, 2021-01-25 0 9:15:00 AM, [address] [place] [address], [phone], Insurance Providers Payer Name Payer Address Payer Phone Insured Name Patient Relati onship to Insured Coverage Start Date Coverage End Date MEDICAID [employer] [address] [facility] [address] EVELIO VIVEROS [facility] [address] [facility] [address] EVELIO VIVEROS self
--- OUTSIDE RECORDS SUMMARY | 2020-12-11 11:21 | CCD ---
Author Author [facility] Organization 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 Active 2 66286145939527 Problem Impaired fasting glucose R73.01 Active 2100853 07 Problem CKD (chronic kidney disease) stage 3, GFR 30-59 ml/min N18.3 Active 423108437 Problem Prostate cancer screening Z12.5 Active 252393 005 Problem Vitamin D deficiency E55.9 Active 84654440 Problem B12 deficiency E53.8 Active 865908257 Problem Acquired hypothyroidism E03.9 Active 91187848 2 Problem Mixed hyperlipidemia E78.2 Active 109432553 Problem Cigarette nicotine dependence in remission F17.211 Active 694472031 Problem Essential (primary) hypertension I10 Active 91846429 Problem COPD (chronic obstructive pulmonary disease) J44.9 Active 86261129 Problem Atrial fibrillation I48.91 Active 72575588 Problem Colon cancer screening Z12.11 Active 340235984 Problem Macrocytosis D75.89 Active 105817330 ALLERGIES Allergen (clinical drug ingredient) Drug/Non Drug Allergy do cumented on EMR Reaction Allergy Type Onset Date Status Penicillin (For Allergies Use Only) Rash Drug Allerg y Active ENCOUNTERS from 1950 to 2020-10-20 Encounter Location Date Provider Diagnosis [address] [address] Oct, 021 Greg Montiel Impaired fasting glucose R73.01 IMMUNIZATIONS Vaccine Route Administration Date Status Influenza [...] Education Language: Question Answer Notes Languages spoken: French Yarsani: Question Answer Notes Yarsani 21 Faith Sexual Hx: Question Answer Notes Had sex [...] Notes Start Da te End Date Status Ezetimibe 10 MG 1 tablet Orally Once a day for 30 Days Active Metoprolol Tartrate 50 MG 1 tablet with food Orally Twice a day for 30 day(s) Active Vitamin B-12 250 MCG TAKE ONE TABLET BY MOUTH ONCE DAILY for 30 Active Clopidogrel Bisulfate 75 MG TAKE ONE TABLET BY MOUTH ONCE DAILY for 3 0 Active Apixaban 5 MG 1 strip Orally bid for 30 day(s) Active ProAir HFA 108 (90 Base) MCG/ACT 2 puffs as needed Inh alation every 6 hrs prn dyspnea for 25 Active Levothyroxine Sodium 25 MCG 1 tablet on an empty stoma ch in the morning Orally Once a day for 30 Active Potassium Chloride CR 10 MEQ ER 1 tab(s) orally Once a day for 30 day (s) Active Calcitriol 0.25 MCG 1 capsule Orally every other day for 30 Active MetFORMIN HCl ER 750 MG 1 tab Orally AC BID for 30 day(s) Active Rosuvastatin Calcium 40 MG 1 tablet Orally Once a day for 30 day (s) Sep, Active Breo Ellipta 200-25 MCG/INH INHALE 1 PUFF BY MOUTH ONCE DAILY for 30 Active Atorvastatin Calcium 80 MG 1 tablet Orally Once a day for 90 days Active Sitagliptin Phosphate 50 MG 1 tablet Orally Once a day for 90 day(s) Active Cyanocobalamin 250 MCG 1 tablet Orally Once a day for 30 day(s) Sep, Active AmLODIPine Besylate 5 MG 1 tablet Orally every morning for 30 day(s) Active PROCEDURES No Information RESULTS No Results REASON FOR VISIT giselle MEDICAL (GENERAL) HISTORY Type Description Date Medical History CAD status post CABG times 16 December 2008 with postoperative atrial fibrillation//s/p IWSTEMI 02/05/14 (presenting troponin 0.3) s/p thrombolysis and ELIAZAR of OM1 and L circumflex, 1 of 3 grafts patent (OMID to LAD)-[place]//01/2016 DPST-intermediate risk, fixed inferior defect-[place] Medical History hyperlipidemia 2B Medical History GERD Medical History impaired fasting glucose Medical History hypertension-borderline LAE, mild PHTH, , mild MR by 01/2016 TTE-[place] Medical History chronic kidney disease stage 3-04/2015 mild B kidney atrophy, R 99, L 109 by 04/2015 [place] (03/2011 110 and 119 repsectively) Medical History COPD- 10/2012 FEV1 920 cc (33 %)/ratio 69%/asthma mild intermittent Medical History vitamin D deficiency Medical History NAFLD-seen by 08/2014 [place] Medical History B carotid ICA 16-49% narrowing by 01/2016 [place] Medical History atrial fibrilllation, [id number] et 01/2016 Medical History B12 deficiency-10/2017 parietal [...] No Information FUNCTIONAL STATUS No Information ASSESSMENTS Encounter Date Diagnosis Assessment Notes Treatment Notes Treatm ent Clinical Notes Oct, Impaired fasting glucose (ICD-10 - R73.01) PLAN OF TREATMENT Medication Medication Name Sig Start Date Stop Date Levothyroxine Sodium 25 MCG 1 tablet on an empty stoma ch in the morning Orally Once a day for 30 Sitagliptin Phosphate 50 MG 1 tablet Orally Once a day for 90 da y(s) ProAir HFA 108 (90 Base) MCG/ACT 2 puffs as needed Inh alation every 6 hrs prn dyspnea for 25 Apixaban 5 MG 1 strip Orally bid for 30 day(s) Potassium Chloride CR 10 MEQ ER 1 tab(s) orally Once a day for 3 0 day(s) Vitamin B-12 250 MCG TAKE ONE TABLET BY MOUTH ONCE DAILY for 30 MetFORMIN HCl ER 750 MG 1 tab Orally AC BID for 30 day(s) Clopidogrel Bisulfate 75 MG TAKE ONE TABLET BY MOUTH ONCE DAILY for 30 Breo Ellipta 200-25 MCG/INH INHALE 1 PUFF BY MOUTH ONCE DAILY fo r 30 Cyanocobalamin 250 MCG 1 tablet Orally Once a day for 30 day(s) Sep, Rosuvastatin Calcium 40 MG 1 tablet Orally Once a day for 30 day(s) Sep, Metoprolol Tartrate 50 MG 1 tablet with food Orally Twice a day for 30 day(s) AmLODIPine Besylate 5 MG 1 tablet Orally every morning for 30 da y(s) Ezetimibe 10 MG 1 tablet Orally Once a day for 30 Days Next Appt Details Provider Name:Greg Montiel, 2020-11-16 0 8:45:00 AM, [address] [place] [address], [phone], Provider Name:Greg Montiel, 2021-01-25 0 9:15:00 AM, [address] [place] [address], [phone], Insurance Providers Payer Name Payer Address Payer Phone Insured Name Patient Relati onship to Insured Coverage Start Date Coverage End Date MEDICAID [facility] [address] [facility] [address] EVELIO VIVEROS [facility] [address] [facility] [address] EVELIO VIVEROS self
--- OUTSIDE RECORDS SUMMARY | 2020-12-11 11:21 | CCD | Continuity of Care Document ---
Author Author Faustino DOLAN Organization Unknown Address [address] [place] [address], [place] [address] Phone [phone] Care Team Providers Care Building Inspector Name Role Phone Greg Montiel MD AUTM [phone] Eugene Dai MD AUTM [phone] Reynaldo George MD AUTM [phone] Problems Active Problems Provider Date Patient post percutaneous transluminal coronary angiop lasty ARIELLE Escudero Onset: 02/23/2018 Paroxysmal atrial fibrillation ARIELLE Escudero Onset: 0 02/23/2018 Electrocardiogram abnormal ARIELLE Escudero Onset: 02/23 Mitral valve disorder ARIELLE Escudero Onset: 02/23/2018 Obesity ARIELLE Escudero Onset: 02/23/2018 Dietary management surveillance ARIELLE Escudero Onset: 02/23/2018 Atherosclerotic heart disease of [place] coronary arter y without angina pectoris ARIELLE Escudero Onset: 02/23/2018 Hypertensive heart disease without heart failure ARIELLE Perez Onset: 02/23/2018 Social History Type Date Description Comments Sex Unknown ETOH Use Occasionally consumes wine Tobacco Use Start: Unknown End: Unknown Patient is a former smoker up to 1 ppd x 25 yrs, quit smoking in 2014 Smoking Status Reviewed: 05/04/20 Patient is a former smoker up to 1 ppd x 25 yrs, quit smoking in 2014 Exercise Type/Frequency Does housework daily Exercise Type/Frequency Does yardwork sporadical ly snow shoveling as needed - slow paced Exercise Type/Frequency Walks sporadically aroun d stores only as needed Exercise Limitations Shortness Of Breath Allergies, Adverse [...] Available Vital Signs Date Vital Result Comment 11/11/2020 11:35am Weight 222.00 lb Height 63 inches 5'3" BMI (Body Mass Index) 39.3 kg/m2 Heart Rate 56 /min 05/04/2020 9:38am Weight 220.00 lb Height 63 inches 5'3" BMI (Body Mass Index) 39.0 kg/m2 BP Systolic Sitting 124 mmHg BP Diastolic Sitting 72 mmHg Results Test Acquired Date Facility Test Result H/L Range Note CMP 09/15/2020 [facility] - not interfaced (315)- - Albumin Serum/Plasma 3.9 Alt - SGPT 47 Calcium Ser/Plasma Mass/Vol 10.0 Carbon Dioxide Ser/Plasm 31 Chloride Serum/Plasma 104 Alkaline Phosphatase 111 Potassium 4.4 Protein Total 7.8 Sodium 138 Ast - Sgot 33 BUN - Urea Nitrogen 27 Glucose 94 70-100 Creatinine For GFR 1.53 Lipid Profile/Cardiac Risk Pro 09/15/2020 [facility] - not interfaced (315)- - Triglycerides 513 High <150 Cholesterol 183 <200 HDL 37 Low >40.0 LDL Cholesterol 146 Chol/HDL Ratio 4.945 <5 Laboratory test finding 09/15/2020 [facility] - not interf aced (315)- - Thyroid Stimulating Hormone 2.450 Free T4 0.90 Procedures Date Code Description Status 11/11/2020 02442 ECG 12-Lead Completed 06/15/2020 32039 Treadmill/Pharmacological Monito ring Completed 06/15/2020 13676 Myocardial Perfusion Spect Multi ple Completed Medical Devices Description No Information Available Encounters Type Date Location Provider Dx Diagnosis Office Visit 11/11/2020 11:15a Main Office ARIELLE Villegas I11 .9 Hypertensive heart disease without heart failure I34.0 Nonrheumatic mitral (valve) insufficiency I48.0 Paroxysmal atrial fibrillati on I25.10 Athscl heart disease of [place] coronary artery w/o ang pctrs R94.31 Abnormal electrocardiogram [ ECG] [EKG] E66.9 Obesity, unspecified Z71.3 Dietary counseling and surve illance Office Visit 09/03/2020 4:05p Main Office Faustino [...] Obesity, unspecified I11.9 Hypertensive heart disease w ithout heart failure Assessments Date Code Description Provider 11/11/2020 I11.9 Hypertensive heart disease witho ut heart failure ARIELLE Villegas 11/11/2020 I34.0 Nonrheumatic mitral (valve) insu fficiency ARIELLE Villegas 11/11/2020 I48.0 Paroxysmal atrial fibrillation C ARIELLE Patterson 11/11/2020 I25.10 Atherosclerotic heart disease of [place] coronary artery with ARIELLE Villegas 11/11/2020 R94.31 Abnormal electrocardiogram [ECG] [EKG] ARIELLE Villegas 11/11/2020 E66.9 Obesity, unspecified ARIELLE Marshall 11/11/2020 Z71.3 Dietary counseling and surveilla nce ARIELLE Villegas 10/13/2020 I48.0 Paroxysmal atrial fibrillation Aman Marcial MD 10/13/2020 E66.9 Obesity, unspecified Faustino [...] MD 06/15/2020 I25.10 Atherosclerotic heart disease of [place] coronary artery with Stress Nuclear/Reg Treadmill 06/02/2020 I34.0 Nonrheumatic mitral (valve) insu fficiency Faustino Marcial MD 06/02/2020 I48.0 Paroxysmal atrial fibrillation Aman Marcial MD 06/02/2020 E66.9 Obesity, unspecified Faustino mcfarlane MD 06/02/2020 I11.9 Hypertensive heart disease witho ut heart failure Faustino Marcial MD Plan of Treatment Future Appointment(s):* 05/12/2021 10:45 am - ARIELLE Villegas at Main Office 11/11/2020 - ARIELLE Villegas* I11.9 Hypertensive heart disease without heart failure * I34.0 Nonrheumatic mitral (valve) insufficiency* Recommendations:* Plan for repeat echocardiogram in one year * I48.0 Paroxysmal atrial fibrillation * I25.10 Atherosclerotic heart disease of [place] coronary artery with * R94.31 Abnormal electrocardiogram [ECG] [EKG]* Recommendations:* No further evaluation is needed at this time. * E66.9 Obesity, unspecified* Recommendations:* Recommended for patient to follow a more whole food diet. Advised patient to avoid overly processed foods and packaged foods. Advised patient to avoid sodas, juices and other liquid calories. Recommended at least 30 minutes of exercise 3 days a week. * Z71.3 Dietary counseling and surveillance* Recommendations:* Recommended for patient to follow a more whole food diet. Advised patient to avoid overly processed foods and packaged foods. Advised patient to avoid sodas, juices and other liquid calories. Recommended at least 30 minutes of exercise 3 days a week. * All * Follow up:* Follow up in 6 months Functional Status Functional Condition Comment Date Status Independent with all ADL's Activ e Mental Status Description No Information Available Referrals Refer to Dr Reason for Referral Status Appt Date Mesfin Chen MD [facility] AUTH EMR - EXPIRES 07/10/20. [place] [id number] [id number] [phone]
--- OUTSIDE RECORDS SUMMARY | 2020-12-11 11:21 | CCD ---
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 Active 2 68609605372072 Problem Impaired fasting glucose R73.01 Active 4934866 07 Problem CKD (chronic kidney disease) stage 3, GFR 30-59 ml/min N18.3 Active 787813836 Problem Prostate cancer screening Z12.5 Active 888482 005 Problem Vitamin D deficiency E55.9 Active 57230199 Problem B12 deficiency E53.8 Active 981916462 Problem Acquired hypothyroidism E03.9 Active 22635230 2 Problem Mixed hyperlipidemia E78.2 Active 040274228 Problem Cigarette nicotine dependence in remission F17.211 Active 420485256 Problem Essential (primary) hypertension I10 Active 03666965 Problem COPD (chronic obstructive pulmonary disease) J44.9 Active 80625492 Problem Atrial fibrillation I48.91 Active 64528367 Problem Colon cancer screening Z12.11 Active 077691621 Problem Macrocytosis D75.89 Active 675247127 ALLERGIES Allergen (clinical drug ingredient) Drug/Non Drug Allergy do cumented on EMR Reaction Allergy Type Onset Date Status Penicillin (For Allergies Use Only) Rash Drug Allerg y Active ENCOUNTERS from 1950 to 2020-10-27 Encounter Location Date Provider Diagnosis [address] [address] Oct, 021 Greg Montiel IMMUNIZATIONS Vaccine Route Administration Date [...] Education Language: Question Answer Notes Languages spoken: Uzbek Judaism: Question Answer Notes Judaism 21 Jew Sexual Hx: Question Answer Notes Had sex [...] Orally Once a day for 30 Active Calcitriol 0.25 MCG 1 capsule Orally every other day for 30 Active Atorvastatin Calcium 80 MG 1 tablet Orally Once a day for 90 days Active MetFORMIN HCl ER 750 MG 1 tab Orally AC BID for 30 day(s) Active Rosuvastatin Calcium 40 MG 1 tablet Orally Once a day for 30 day (s) Sep, Active Breo Ellipta 200-25 MCG/INH INHALE 1 PUFF BY MOUTH ONCE DAILY for 30 Active Potassium Chloride CR 10 MEQ ER 1 tab(s) orally Once a day for 30 day (s) Active Sitagliptin Phosphate 50 MG 1 tablet Orally Once a day for 90 day(s) Active Cyanocobalamin 250 MCG 1 tablet Orally Once a day for 30 day(s) Sep, Active AmLODIPine Besylate 5 MG 1 tablet Orally every morning for 30 day(s) Active PROCEDURES No Information RESULTS No Results REASON FOR VISIT atorvastatin MEDICAL (GENERAL) HISTORY Type Description Date Medical History CAD status post CABG times 16 December 2008 with postoperative atrial fibrillation//s/p IWSTEMI 02/05/14 (presenting troponin 0.3) s/p thrombolysis and ELIAZAR of OM1 and L circumflex, 1 of 3 grafts patent (OMID to LAD)-Malaika//01/2016 DPST-intermediate risk, fixed inferior defect-[place] Medical History hyperlipidemia 2B Medical History GERD Medical History impaired fasting glucose Medical History hypertension-borderline LAE, mild PHTH, , mild MR by 01/2016 TTE-[place] Medical History chronic kidney disease stage 3-04/2015 mild B kidney atrophy, R 99, L 109 by 04/2015 [place] (03/2011 110 and 119 repsectively) Medical History COPD- 10/2012 FEV1 920 cc (33 %)/ratio 69%/asthma mild intermittent Medical History vitamin D deficiency Medical History NAFLD-seen by 08/2014 [place] Medical History B carotid ICA 16-49% narrowing by 01/2016 [place] Medical History atrial fibrilllation, lxoymunuhf-vpe-xzh et 01/2016 Medical History B12 deficiency-10/2017 parietal Ab 26 (0- 20), IF Ab 0.9 (0-1.1) Medical History ho nicotine use disorder-33 PY-1PPD 25-5 8 Surgical History triple bypass 2006 Surgical History Bilateral eye muscle repair 1960's Surgical History B cateract-Shante 03/2012 Hospitalization History [...] 1 strip Orally bid for 30 day(s) Atorvastatin Calcium 80 MG 1 tablet Orally Once a day for 90 day s Vitamin B-12 250 MCG TAKE ONE TABLET [...] Once a day for 30 day(s) Sep, Potassium Chloride CR 10 MEQ ER 1 tab(s) orally Once a day for 3 0 day(s) AmLODIPine Besylate 5 MG 1 tablet Orally every morning for 30 da y(s) Rosuvastatin Calcium 40 MG 1 tablet Orally Once a day for 30 day(s) Sep, Ezetimibe 10 MG 1 tablet Orally Once a day for 30 Days Metoprolol Tartrate 50 MG 1 tablet with food Orally Twice a day for 30 day(s) Next Appt Details Provider Name:Greg Montiel, 2020-11-16 0 8:45:00 AM, [address] [place] [address], [address], Provider Name:Greg Montiel, 2021-01-25 0 9:15:00 AM, [address] [place], [address], Insurance Providers Payer Name Payer Address Payer Phone Insured Name Patient Relati onship to Insured Coverage Start Date Coverage End Date [facility] [address] [facility] [phone] EVELIO VIVEROS MEDICAID [facility] [address] [facility] [address] EVELIO VIVEROS self
--- OUTSIDE RECORDS SUMMARY | 2020-12-11 11:21 | CCD | Continuity of Care Document ---
Author Organization Unknown Address Unknown Phone Unavailable Care Team Providers Care Cigar Making Machine Supervisor Name Role Phone Greg Montiel MD AUTM [phone] Eugene Dai MD AUTM [phone] Reynaldo George MD AUTM [phone] Problems Active Problems Provider Date Patient post percutaneous transluminal coronary angiop lasty ARIELLE Escudero Onset: 02/23/2018 Paroxysmal atrial fibrillation ARIELLE Escudero Onset: 0 02/23/2018 Electrocardiogram abnormal ARIELLE Escudero Onset: 02/23 Mitral valve disorder ARIELLE Escudero Onset: 02/23/2018 Obesity ARIELLE Escudero Onset: 02/23/2018 Dietary management surveillance ARIELLE Escudero Onset: 02/23/2018 Atherosclerotic heart disease of [place] coronary arter y without angina pectoris ARIELLE [...] Sitting 80 mmHg large cuff, Ra Results Test Acquired Date Facility Test Result H/L Range Note CMP 09/15/2020 [facility] - not interfaced (315)- - Albumin Serum/Plasma 3.9 Alt - SGPT 47 Calcium Ser/Plasma Mass/Vol 10.0 Carbon Dioxide Ser/Plasm 31 Chloride Serum/Plasma 104 Alkaline Phosphatase 111 Potassium 4.4 Protein Total 7.8 Sodium 138 Ast - Sgot 33 BUN - Urea Nitrogen 27 Glucose 94 70-100 Creatinine For GFR 1.53 Lipid Profile/Cardiac Risk Pro 09/15/2020 [facility] - not interfaced (315)- - Triglycerides 513 High <150 Cholesterol 183 <200 HDL 37 Low >40.0 LDL Cholesterol 146 Chol/HDL Ratio 4.945 <5 Laboratory test finding 09/15/2020 [facility] - not interf aced (315)- - Thyroid Stimulating Hormone 2.450 Free T4 0.90 Procedures Date Code Description Status 06/15/2020 86587 Treadmill/Pharmacological Monito ring Completed 06/15/2020 74116 Myocardial Perfusion Spect Multi ple Completed Medical [...] Obesity, unspecified I11.9 Hypertensive heart disease w [facility] heart failure Assessments Date Code Description Provider 10/13/2020 I48.0 Paroxysmal atrial fibrillation Aman Marcial [...] MD 06/15/2020 I25.10 Atherosclerotic heart disease of [place] coronary artery with Stress Nuclear/Reg Treadmill 06/02/2020 [...] palpitations. * I25.10 Atherosclerotic heart disease of [place] coronary artery with* Recommendations:* Please call the [...] Referral Status Appt Date Mesfin Chen MD [facility] AUTH EMR - EXPIRES 07/10/20. [place] [id number] [address] [id number] [phone]
--- OUTSIDE RECORDS SUMMARY | 2020-12-11 11:21 | CCD ---
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 Active 2 90787262850942 Problem Impaired fasting glucose R73.01 Active 8141317 07 Problem CKD (chronic kidney disease) stage 3, GFR 30-59 ml/min N18.3 Active 393296069 Problem Prostate cancer screening Z12.5 Active 305096 005 Problem Vitamin D deficiency E55.9 Active 36285476 Problem B12 deficiency E53.8 Active 552588607 Problem Acquired hypothyroidism E03.9 Active 93586110 2 Problem Mixed hyperlipidemia E78.2 Active 727943186 Problem Cigarette nicotine dependence in remission F17.211 Active 691467812 Problem Essential (primary) hypertension I10 Active 65068176 Problem COPD (chronic obstructive pulmonary disease) J44.9 Active 27528082 Problem Atrial fibrillation I48.91 Active 33586559 Problem Colon cancer screening Z12.11 Active 988046651 Problem Macrocytosis D75.89 Active 909782965 ALLERGIES Allergen (clinical drug ingredient) Drug/Non Drug Allergy do cumented on EMR Reaction Allergy Type Onset Date Status Penicillin (For Allergies Use Only) Rash Drug Allerg y Active ENCOUNTERS from 1950 to 2020-10-13 Encounter Location Date Provider Diagnosis [address] [address] 28 Dec, 020 Greg Montiel B12 deficiency E53.8 IMMUNIZATIONS Vaccine Route Administration Date Status Influenza [...] Education Language: Question Answer Notes Languages spoken: Ugandan Druze: Question Answer Notes Druze 21 Jehovah'[employer] Witness Sexual Hx: Question Answer Notes Had sex [...] Notes Start Da te End Date Status Breo Ellipta 200-25 MCG/INH 1 puff Inhalation Once a day for 30 Active ProAir HFA 108 (90 Base) MCG/ACT 2 puffs as needed Inh alation every 6 hrs prn dyspnea for 25 Active Metoprolol Tartrate 50 MG 1 tablet with food Orally Twice a day for 30 day(s) Active Vitamin B-12 250 MCG TAKE ONE TABLET BY MOUTH ONCE DAILY for 30 Active AmLODIPine Besylate 5 MG 1 tablet Orally every morning for 30 day(s) Active Apixaban 5 MG 1 strip Orally bid for 30 day(s) Active Ezetimibe 10 MG 1 tablet Orally Once a day for 30 Days Active Breo Ellipta 200-25 MCG/INH 1 puff [...] Orally AC BID for 30 day(s) Active Levothyroxine Sodium 25 MCG 1 tablet on an empty stoma ch in the morning Orally Once a day for 30 day(s) Active ProAir HFA 108 (90 Base) MCG/ACT 2 puffs as needed Inh alation every 6 hrs prn dyspnea for 30 day(s) Active Atorvastatin Calcium 80 MG 1 tablet Orally Once a day for 90 days Active Clopidogrel Bisulfate 75 MG 1 tablet Orally Once a day for 30 day(s) Active Cyanocobalamin 250 MCG 1 tablet Orally Once a day for 30 day(s) Sep, Active Rosuvastatin Calcium 40 MG 1 tablet Orally Once a day for 30 day (s) Sep, Active PROCEDURES No Information RESULTS No Results REASON FOR VISIT vit B 12 MEDICAL (GENERAL) HISTORY Type Description Date Medical History CAD status post CABG times 16 December 2008 with postoperative atrial fibrillation//s/p IWSTEMI 02/05/14 (presenting troponin 0.3) s/p thrombolysis and ELIAZAR of OM1 and L circumflex, 1 of 3 grafts patent (OMID to LAD)-Malaika//01/2016 DPST-intermediate risk, fixed inferior defect-[place] Medical History hyperlipidemia 2B Medical History GERD Medical History impaired fasting glucose Medical History hypertension-borderline LAE, mild PHTH, , mild MR by 01/2016 TTE-[place] Medical History chronic kidney disease stage 3-04/2015 mild B kidney atrophy, R 99, L 109 by 04/2015 [place] (03/2011 110 and 119 repsectively) Medical History COPD- 10/2012 FEV1 920 cc (33 %)/ratio 69%/asthma mild intermittent Medical History vitamin D deficiency Medical History NAFLD-seen by 08/2014 [place] Medical History B carotid ICA 16-49% narrowing by 01/2016 [place] Medical History atrial fibrilllation, hyyprshfmp-rum-hoh et 01/2016 Medical History B12 deficiency-10/2017 parietal Ab 26 (0- 20), IF Ab 0.9 (0-1.1) Medical History ho nicotine use disorder-33 PY-1PPD 25-5 8 Surgical History triple bypass 2006 Surgical History Bilateral eye muscle repair 1959' Surgical History B cateract-Shante 03/2012 Hospitalization History syncope, favoring cough-uday colt 2 URI, new-onset AF, CT head NAD 01/25-01/29/16 Goals Section No Information Health Concerns No Information MEDICAL EQUIPMENT No Information MENTAL STATUS No Information FUNCTIONAL STATUS No Information ASSESSMENTS Encounter Date Diagnosis Assessment Notes Treatment Notes Treatm ent Clinical Notes Sep, B12 deficiency (ICD-10 - E53.8) PLAN OF TREATMENT Medication Medication Name Sig Start Date Stop Date Breo Ellipta 200-25 MCG/INH 1 puff Inhalation Once a day for 30 day(s) Clopidogrel Bisulfate 75 MG 1 tablet Orally Once a day for 30 da y(s) Apixaban 5 MG 1 strip Orally bid for 30 day(s) Sitagliptin Phosphate 50 MG 1 tablet Orally Once a day for 90 da y(s) Levothyroxine Sodium 25 MCG 1 tablet on an empty stoma ch in the morning Orally Once a day for 30 day(s) Potassium Chloride CR 10 MEQ ER 1 tab(s) orally Once a day for 3 0 day(s) Cyanocobalamin 250 MCG 1 tablet Orally Once a day for 30 day(s) Sep, MetFORMIN HCl ER 750 MG 1 tab Orally AC BID for 30 day(s) Vitamin B-12 250 MCG TAKE ONE TABLET BY MOUTH ONCE DAILY for 30 ProAir HFA 108 (90 Base) MCG/ACT 2 puffs as needed Inh alation every 6 hrs prn dyspnea for 30 day(s) Rosuvastatin Calcium 40 MG 1 tablet Orally [...] Provider Name:Greg Montiel, 2020-11-16 0 8:45:00 AM, [address] [place], [address], Provider Name:Greg Montiel, 2021-01-25 0 9:15:00 AM, [address] [place], [address], Insurance Providers Payer Name Payer Address Payer Phone Insured Name Patient Relati onship to Insured Coverage Start Date Coverage End Date [facility] [address] [facility] [phone] EVELIO VIVEROS self MEDICAID [employer] [address] [facility] [id number] EVELIO VIVEROS self
--- OUTSIDE RECORDS SUMMARY | 2020-12-11 11:22 | CCD ---
Author Author [facility] Organization [facility] Address Unknown Phone Unavailable Care Team Providers Care Blow Off Worker Name Role Phone Jules, L Zully PA Unavailable Unavailable Jules, L Zully PA Unavailable Unavailable Jules, L Zully PA Unavailable Unavailable Jules, L Zully PA Unavailable Unavailable Jules, L Zully PA Unavailable Unavailable Jules, L Zully PA Unavailable Unavailable Jules, L Zully PA Unavailable Unavailable Jules, L Zully PA Unavailable Unavailable Jules, L Zully PA Unavailable Unavailable Jules, L Zully PA Unavailable Unavailable Jules, L Zully PA Unavailable Unavailable Jules, L Zully PA Unavailable Unavailable Jules, L Zully PA Unavailable Unavailable Jules, L Zully PA Unavailable Unavailable Jules, L Zully PA Unavailable Unavailable Jules, L Zully PA Unavailable Unavailable Jules, L Zully PA Unavailable Unavailable Jules, L Zully PA Unavailable Unavailable Jules, L Zully PA Unavailable Unavailable Jules, L Zully PA Unavailable Unavailable Jules, L Zully PA Unavailable Unavailable Jules, L Zully PA Unavailable Unavailable Jules, L Zully PA Unavailable Unavailable Suzie TYSON MD Unavailable Unavailable Suzie TYSON MD Unavailable Unavailable Suzie TYSON MD Unavailable Unavailable Suzie TYSON MD Unavailable Unavailable Suzie TYSON MD Unavailable Unavailable Suzie TYSON MD Unavailable Unavailable Suzie TYSON MD Unavailable Unavailable Suzie TYSON MD Unavailable Unavailable Suzie TYSON MD Unavailable Unavailable TYSONSuzie Pearson MD Unavailable Unavailable TYSONSuzie Pearson MD Unavailable Unavailable TYSONSuzie MD Unavailable Unavailable TYSONSuzie Pearson MD Unavailable Unavailable TYSONSuzie Pearson MD Unavailable Unavailable TYSONSuzie Pearson MD Unavailable Unavailable TYSONSuzie Pearson MD Unavailable Unavailable TYSONSzuie MD Unavailable Unavailable TYSONSuzie Pearson MD Unavailable Unavailable TYSONSuzie Pearson MD Unavailable Unavailable TYSONSuzie Pearson MD Unavailable Unavailable Suzie TYSON MD Unavailable Unavailable TYSONSuzie Pearson MD Unavailable Unavailable TYSONSuzie Pearson MD Unavailable Unavailable TYSONSuzie Pearson MD Unavailable Unavailable TYSONSuzie Pearson MD Unavailable Unavailable TYSONSuzie Pearson MD Unavailable Unavailable TYSONSzuie Pearson MD Unavailable Unavailable TYSON, E EVELIO COY Unavailable Unavailable TYSONSuzie Pearson MD Unavailable Unavailable TYSON, E EVELIO COY Unavailable Unavailable TYSON, E EVELIO COY Unavailable Unavailable TYSONSuzie Pearson MD Unavailable Unavailable TYSONSuzie Pearson MD Unavailable Unavailable Suzie TYSON MD Unavailable Unavailable TYSONSuzie Pearson MD Unavailable Unavailable Suzie TYSON MD Unavailable Unavailable TYSONSuzie Pearson MD Unavailable Unavailable TYSONSuzie Pearson MD Unavailable Unavailable YTSONSuzie Pearson MD Unavailable Unavailable TYSONSuzie Pearson MD Unavailable Unavailable Suzie TYSON MD Unavailable Unavailable TYSONSuzie Pearson MD Unavailable Unavailable TYSONSuzie Pearson MD Unavailable Unavailable Suzie TYSON MD Unavailable Unavailable TYSONSuzie Pearson MD Unavailable Unavailable Suzie TYSON MD Unavailable Unavailable Suzie TYSON MD Unavailable Unavailable TYSONSuzie Pearson MD Unavailable Unavailable Suzie TYSON MD Unavailable Unavailable Suzie TYSON MD Unavailable Unavailable Suzie TYSON MD Unavailable Unavailable Suzie TYSON MD Unavailable Unavailable Suzie TYSON MD Unavailable Unavailable Suzie TYSON MD Unavailable Unavailable Suzie TYSON MD Unavailable Unavailable YTSONSuzie Pearson MD Unavailable Unavailable Suzie TYSON MD Unavailable Unavailable KELSI, L CHER PA Unavailable Unavailable KELSI, L CHER PA Unavailable Unavailable KELSI, L CHER PA Unavailable Unavailable KELSI, L CHER PA Unavailable Unavailable KELSI, L CHER PA Unavailable Unavailable KELSI, L CHER PA Unavailable Unavailable KELSI, L CHER PA Unavailable Unavailable KELSI, L CHER PA Unavailable Unavailable KELSI, L CHER PA Unavailable Unavailable KELSI, L CHER PA Unavailable Unavailable KELSI, L CHER PA Unavailable Unavailable KELSI, L CHER PA Unavailable Unavailable Re-disclosure Warning The records that you are about to access may contain information from federally-assisted alcohol or drug abuse programs. If such information is present, then the following federally mandated warning applies: This information has been disclosed to you from records protected by federal confidentiality rules (42 CFR part 2). The federal rules prohibit you from making any further disclosure of this information unless further disclosure is expressly permitted by the written consent of the person to whom it pertains or as otherwise permitted by 42 CFR part 2. A general authorization for the release of medical or other information is NOT sufficient for this purpose. The Federal rules restrict any use of the information to criminally investigate or prosecute any alcohol or drug abuse patient.The records that you are about to access may contain highly sensitive health information, the redisclosure of which is protected by Article 27-F of the [place] Public Health law. If you continue you may have access to information: Regarding HIV / AIDS; Provided by facilities licensed or operated by the [place] [facility] Office of Mental Health; or Provided by the [place] [facility] Office for People With Developmental Disabilities. If such information is present, then the following [place] [facility] mandated warning applies: This information has been disclosed to you from confidential records which are protected by state law. State law prohibits you from making any further disclosure of this information without the specific written consent of the person to whom it pertains, or as otherwise permitted by law. Any unauthorized further disclosure in violation of state law may result in a fine or nursing home sentence or both. A general authorization for the release of medical or other information is NOT sufficient authorization for further disc losure. Allergies and Adverse Reactions Type Description Substance Reaction Status Data Source(s ) Drug allergy Penicillin (For Allergies Use Only) Drug allergy Rash Active eCW1 ([facility]) Family History Family Member Name Family Member Gender Family Member Status Date o f Status Description Data Source(s) Unknown Male Problem MEDENT ([facility] ) Encounters Encounter Providers Location Date Indications Data Source(s ) Outpatient Attender: CHER GUZMÁN Main Office 11/11/2020 1 0:15:00 AM EST MEDENT ([facility]) [place] [address] [facility] [address] 10/26/2020 12:00:00 AM EST eCW1 ([facility]) [place] [address] [facility] [address] 10/20/2020 12:00:00 AM EST eCW1 ([facility]) [place] [address] [facility] [address] 10/12/2020 12:00:00 AM EST eCW1 ([facility]) [place] [address] [facility] [place] [address] 09/29/2020 12:00:00 AM EST eCW1 ([facility]) [place] [address] [facility] [address] 09/29/2020 12:00:00 AM EST eCW1 ([facility]) [place] [address] [facility] [address] 09/18/2020 12:00:00 AM EST eCW1 ([facility]) Office Visit Attender: EVELIO TYSON MD Main Office 09/03/2020 03:05:0 0 PM EST MEDENT ([facility]) Office Visit Attender: EVELIO TYSON MD Main Office 07/31/2020 03:27:0 0 PM EDT MEDENT ([facility]) [place] [address] [facility] [address] 07/31/2020 12:00:00 AM EDT eCW1 ([facility]) [place] [address] [facility] [place] [address] 07/24/2020 12:00:00 AM EDT eCW1 ([facility]) Office Visit Attender: EVELIO TYSON MD Main Office 07/03/2020 10:50:0 0 AM EDT MEDENT ([facility]) Office Visit Attender: EVELIO TYSON MD Main Office 06/02/2020 11:49:0 0 AM EDT MEDENT ([facility]) [place] [address] [facility] [address] 05/08/2020 12:00:00 AM EDT eCW1 ([facility]) Outpatient Attender: Zully GUZMÁN Main Office 05/04/2020 10:15:0 0 AM EDT MEDENT ([facility]) Office Visit Attender: EVELIO TYSON MD Main Office 04/27/2020 10:13:0 0 AM EDT MEDENT ([facility]) [place] [address] [facility] [address] 04/21/2020 12:00:00 AM EDT eCW1 ([facility]) Outpatient [address] [facility] [place] [address] 04/20/2020 12:00:00 AM EDT eCW1 ([facility]) [facility] [place] [address] [facility] [address] 04/16/2020 12:00:00 AM EDT eCW1 ([facility]) Office Visit Attender: EVELIO TYSON MD Main Office 03/26/2020 01:44:0 0 PM EDT MEDENT ([facility]) [facility] [address] [facility] [place] [address] 02/24/2020 12:00:00 AM EDT eCW1 ([facility]) [facility] [address] [place] [address], [place] [address] 02/21/2020 12:00:00 AM EDT eCW1 [facility] Office Visit Attender: EVELIO TYSON MD Main Office 02/20/2020 01:27:0 0 PM EDT MEDENT ([facility]) [facility] [place] [address] [facility] [place] [address] 12/23/2019 12:00:00 AM EDT eCW1 ([facility]) [facility] [address] [place] [address], [place] [address] 12/09/2019 12:00:00 AM EST eCW1 ([facility]) [facility] [address] [place] [address], [place] [address] 11/25/2019 12:00:00 AM EST eCW1 ([facility]) [facility] [address] [place] [address] [place] [address] 11/21/2019 12:00:00 AM EST eCW1 ([facility]) Immunizations Vaccine Date Status Description Data Source(s) influenza, recombinant, quadrIvalent,injectable, prese rvative free 09/29/2020 05:23:00 PM EST completed eCW1 ([facility]) influenza, recombinant, quadrIvalent,injectable, prese rvative free 09/29/2020 05:23:00 PM EST completed eCW1 ([facility]) influenza, recombinant, quadrIvalent,injectable, prese rvative free 09/29/2020 05:23:00 PM EST completed eCW1 ([facility]) influenza, recombinant, quadrIvalent,injectable, prese rvative free 09/29/2020 05:23:00 PM EST completed eCW1 ([facility]) influenza, recombinant, quadrIvalent,injectable, prese rvative free 09/29/2020 05:23:00 PM EST completed eCW1 ([facility]) influenza, recombinant, quadrIvalent,injectable, prese rvative free 09/29/2020 05:23:00 PM EST completed eCW1 ([facility]) Medications Medication Brand Name Start Date Product Form Dose Route Admi nistrative Instructions Pharmacy Instructions Status Indications Reaction Description Data Source(s) Cyanocobalamin 250 MCG UNK 10/12/2020 12:00:00 AM EST 1.0 {t ablet} active Cyanocobalamin 250 MCG eCW1 ([facility]) Rosuvastatin calcium 40 MG Oral Tablet [Crestor] Crestor 10/12/2020 12:00:00 AM EST ORAL active [facility] ([facility]) Cyanocobalamin 250 MCG UNK 10/12/2020 12:00:00 AM EST 1.0 {t ablet} active Cyanocobalamin 250 MCG eCW1 ([facility]) Cyanocobalamin 250 MCG UNK 10/12/2020 12:00:00 AM EST 1.0 {t ablet} active Cyanocobalamin 250 MCG eCW1 ([facility]) Rosuvastatin calcium 40 MG Oral Tablet Rosuvastatin Ca lcium 40 MG Rosuvastatin Calcium 40 MG 09/29/2020 12:00:00 AM EST 1.0 {tablet} active Rosuvastatin Calcium 40 MG eCW1 ([facility]) Rosuvastatin calcium 40 MG Oral Tablet Rosuvastatin Ca lcium 40 MG Rosuvastatin Calcium 40 MG 09/29/2020 12:00:00 AM EST 1.0 {tablet} active Rosuvastatin Calcium 40 MG eCW1 ([facility]) Rosuvastatin calcium 40 MG Oral Tablet Rosuvastatin Ca lcium 40 MG Rosuvastatin Calcium 40 MG 09/29/2020 12:00:00 AM EST 1.0 {tablet} active Rosuvastatin Calcium 40 MG eCW1 ([facility]) Rosuvastatin calcium 40 MG Oral Tablet Rosuvastatin Ca lcium 40 MG Rosuvastatin Calcium 40 MG 09/29/2020 12:00:00 AM EST 1.0 {tablet} active Rosuvastatin Calcium 40 MG eCW1 ([facility]) Rosuvastatin calcium 40 MG Oral Tablet Rosuvastatin Ca lcium 40 MG Rosuvastatin Calcium 40 MG 09/29/2020 12:00:00 AM EST 1.0 {tablet} active Rosuvastatin Calcium 40 MG eCW1 ([facility]) Rosuvastatin calcium 40 MG Oral Tablet Rosuvastatin Ca lcium 40 MG Rosuvastatin Calcium 40 MG 09/29/2020 12:00:00 AM EST 1.0 {tablet} active Rosuvastatin Calcium 40 MG eCW1 ([facility]) sitagliptin 50 MG Oral Tablet [Januvia] Januvia 05/03/2020 12:00:0 0 AM EDT ORAL active MEDENT ([facility]) Sitagliptin Phosphate 50 MG UNK 11/25/2019 12:00:00 AM EST active 1 tablet eCW1 ([facility]) Sitagliptin Phosphate 50 MG UNK 11/25/2019 12:00:00 AM EST active 1 tablet eCW1 ([facility]) Insurance Providers Payer name Policy type / Coverage type Policy ID Covered green party ID Covered green party's relationship to butler Policy Butler Plan Information EMEDNY [id number] SP [id number] [facility] [id number] SP [id number] MEDICARE [id number] SP [id number] MEDICAID [id number] SP [id number] [facility]-Medicare Part B [id number] ANS-Medicaid [id number] [employer] Plus Commercial [id number] Self [id number] Medicaid Medigap Part B [id number] Self [id number] Medicare (Part B) Medicare Primary [id number] Self [id number] [facility] Commercial [id number] Self [id number] [facility] Gem[employer] Plus Commercial [id number] Self [id number] Medicaid Medigap Part B [id number] Self [id number] Medicare (Part B) Medicare Primary [id number] Self [id number] [facility]-Medicaid [id number] [facility] [id number] [facility]-Medicare Part B [id number] [facility]-Medicaid [id number] [facility]-Medicaid [id number] [facility]-Medicare Part B [id number] ANSI-Medicare Part B [id number] ANSI-Medicaid [id number] ANSI-Medicaid [id number] ANSI-Medicare Part B [id number] ANSI-Medicare Part B [id number] ANSI-Medicaid [id number] [facility] Commercial [id number] Self [id number] Medicaid [facility] Part B [id number] Self [id number] Medicare (Part B) Medicare Primary [id number] Self [id number] ANSI-Medicare Part B [id number] ANSI-Medicaid [id number] ANSI-Medicare Part B [id number] [facility]-Medicaid [id number] ANS-Medicaid [id number] [facility]-Medicare Part B [id number] MEDICARE [id number] SP [id number] MEDICAID M [id number] S [id number] MEDICARE C [id number] S [id number] A Medicaid [place] Medigap Part B [id number] Self [id number] Medicare [facility] Medicare Primary [id number] Self [id number] [employer] Plus Commercial [id number] Self [id number] Medicaid Medigap Part B [id number] Self [id number] Medicare (Part B) Medicare Primary [id number] Self [id number] [employer] Plus Commercial Self [facility] Plan Commercial Self Medicaid Medigap Part B Self Medicare (Part B) Medicare Primary Self [facility]AN [facility] [id number] SP [id number] [facility] O [id number] S [id number] [facility] MEDICAID 2 [id number] SELF PAY 2 UNAVAILABLE 1 UNAVAILA BLE GHI FAMILY HLTH PLUS 2 [id number] SELF PAY UNAVAILABLE SP UNAVAILA BLE O BLUE [id number] SP [id number] P UNAVAILABLE UNAVAILA BLE Problems, Conditions, and Diagnoses Code Display Name Description Problem Type Effective Dates Data Source(s) F17.211 [id number] Cigarette nicotine dependence in remissio n Problem 11/25/2019 12:00:00 AM EST eCW1 ([facility]) F17.211 [id number] Cigarette nicotine dependence in julio n Problem 11/25/2019 12:00:00 AM EST eCW1 ([facility]) Surgeries/Procedures Procedure Description Date Indications Data Source(s) ECG ROUTINE ECG W/LEAST 12 LDS W/I&R 11/11/2020 12:00: 00 AM EST MEDENT ([facility]) Immunization: Flublok Quadrivalent (18 years & older) 0.5mL IM (Influenza) 09/29/2020 12:00:00 AM EST [facility]CW[facility] MYOCARDIAL SPECT MULTIPLE STUDIES 06/15/2020 12:00:00 AM EDT MEDENT ([facility]) CV STRS TST XERS&/OR RX CONT ECG PHYS SI&R 06/15/2020 12:00:00 AM EDT MEDENT ([facility]) ECG ROUTINE ECG W/LEAST 12 LDS W/I&R 05/04/2020 12:00: 00 AM EDT MEDENT ([facility]) Office Visit, Est Pt., Level 3 FC 11/25/2019 12:00:00 AM EST eCW1 ([facility]) Office Visit, Est Pt., Level 4 PC 11/25/2019 12:00:00 AM EST eCW1 ([facility]) ECHO TTHRC R-T 2D W/WOM-MODE COMPL SPEC&COLR DOP 10/18 12:00:00 AM EST MEDENT ([facility]) Results ID Date Data Source [id number] 09/15/2020 12:24:00 PM EST MEDENT ([facility]) Name Value Range Interpretation Code Description Data Monica rce(s) Supporting Document(s) Free T4 0.90 MEDENT ([facility]) Thyroid Stimulating Hormone 2.450 ME DENT ([facility]) ID Date Data Source [id number] 09/15/2020 12:24:00 PM EST MEDENT ([facility]) Name Value Range Interpretation Code Description Data Monica rce(s) Supporting Document(s) Triglycerides 513 MEDENT ([facility]) Cholesterol 183 MEDENT ([facility]) Chol/HDL Ratio 4.945 MEDENT ([facility] Cholesterol in LDL [Mass/volume] in Serum or Plasma by calculation 14 6 MEDENT ([facility]) HDL 37 MEDENT [facility] ID Date Data Source [id number] 09/15/2020 12:24:00 PM EST MEDENT ([facility]) Name Value Range Interpretation Code Description Data Monica rce(s) Supporting Document(s) Alanine aminotransferase [Enzymatic activity/volume] in Serum or Pl asma 47 MEDENT ([facility]) Albumin [Mass/volume] in Serum or Plasma 3.9 MEDENT ([facility]) Calcium [Mass/volume] in Serum or Plasma 10.0 MEDENT ([facility]) Alkaline phosphatase [Enzymatic activity/volume] in Serum or Plasma 1 11 MEDENT ([facility]) Carbon dioxide, total [Moles/volume] in Serum or Plasma 31 MEDENT ([facility]) Chloride [Moles/volume] in Serum or Plasma 104 MEDENT ([facility]) Potassium [Moles/volume] in Serum or Plasma 4.4 MEDENT ([facility]) Protein [Mass/volume] in Serum or Plasma 7.8 MEDENT ([facility]) Sodium 138 MEDENT ([facility] Urea nitrogen [Mass/volume] in Serum or Plasma 27 MEDENT ([facility]) Glucose 94 70-100 MEDENT ([facility] Aspartate aminotransferase [Enzymatic activity/volume] in Serum or Plasma 33 MEDENT ([facility]) Creatinine For GFR 1.53 MEDENT ([facility]) ID Date Data Source [id number] 04/01/2020 03:12:00 PM EDT MEDENT ([facility]) Name Value Range Interpretation Code Description Data Monica rce(s) Supporting Document(s) Cholesterol 154 MEDENT ([facility]) Triglycerides 459 MEDENT ([facility]) HDL 34 MEDENT ([facility] Chol/HDL Ratio 4.529 MEDENT ([facility]) Cholesterol in LDL [Mass/volume] in Serum or Plasma by calculation 12 0 MEDENT ([facility]) ID Date Data Source [id number] 04/01/2020 03:12:00 PM EDT MEDENT [facility] Name Value Range Interpretation Code Description Data Monica rce(s) Supporting Document(s) Free T4 0.99 MEDENT ([facility] Thyroid Stimulating Hormone 2.930 ME DENT ([facility]) ID Date Data Source [id number] 04/01/2020 03:12:00 PM EDT MEDENT ([facility] Name Value Range Interpretation Code Description Data Monica rce(s) Supporting Document(s) Albumin [Mass/volume] in Serum or Plasma 4.0 MEDENT ([facility]) Alanine aminotransferase [Enzymatic activity/volume] in Serum or Pl asma 32 MEDENT ([facility]) Chloride [Moles/volume] in Serum or Plasma 103 MEDENT ([facility]) Calcium [Mass/volume] in Serum or Plasma 9.6 MEDENT ([facility]) Carbon dioxide, total [Moles/volume] in Serum or Plasma 28 MEDENT ([facility]) Potassium [Moles/volume] in Serum or Plasma 4.6 MEDENT ([facility]) Protein [Mass/volume] in Serum or Plasma 7.8 MEDENT ([facility]) Alkaline phosphatase [Enzymatic activity/volume] in Serum or Plasma 1 22 MEDENT ([facility]) Urea nitrogen [Mass/volume] in Serum or Plasma 27 MEDENT ([facility]) Aspartate aminotransferase [Enzymatic activity/volume] in Serum or Plasma 21 MEDENT ([facility]) Sodium 137 [facility] ([facility] Glucose 83 70-100 MED[facility] ([facility] Creatinine For GFR 49.4 MEDENT ([facility]) ID Date Data Source [id number] 04/01/2020 03:12:00 PM EDT MEDENT ([facility]) Name Value Range Interpretation Code Description Data Monica rce(s) Supporting Document(s) White Blood Count 7.3 4.0-10.0 MEDENT ([facility]) Red Blood Count 3.79 4.30-6.10 MEDENT ([facility]) Platelets 262 150-450 [facility] Hemoglobin 12.2 MED[facility] ([facility]) Hematocrit 37.0 MEDENT ([facility]) Procedure Social History Code Duration Value Status Description Data Source(s ) Smoking 05/04/2020 12:00:00 AM EDT Patient is a former smoker completed Patient is a former smoker MEDENT ([facility]) Vital Signs ID Date Data Source UNK Name Value Range Interpretation Code Description Data Source(s) Heart rate 56 /min 56 /min MEDENT ([facility]) Body mass index (BMI) [Ratio] 39.3 kg/m2 39.3 k g/m2 MED[facility] ([facility]) Body height 63 [in_i] 63 [in_i] MED[facility] ([facility]) 5'3" Body weight 222.00 [lb_av] 222.00 [lb_av] MEDEN T ([facility]) Diastolic blood pressure 82 mm[Hg] 82 mm[Hg] eCW1 ([facility]) Systolic blood pressure 142 mm[Hg] 142 mm[Hg] e CW1 ([facility]) Body temperature 96.5 [degF] 96.5 [degF] eCW1 ( [facility]) Respiratory rate 20 /min 20 /min eCW1 ([facility]) Heart rate 65 /min 65 /min eCW1 ([facility]) Body mass index (BMI) [Ratio] 38.58 kg/m2 38.58 kg/m2 eCW1 ([facility]) Body height 64 [in_i] 64 [in_i] eCW1 ([facility]) Body weight 224.8 [lb_av] 224.8 [lb_av] eCW1 ([facility]) Diastolic blood pressure--sitting 72 mm[Hg] 72 mm[Hg] MEDENT ([facility]) Systolic blood pressure--sitting 124 mm[Hg] 124 mm[Hg] MEDENT ([facility]) Body mass index (BMI) [Ratio] 39.0 kg/m2 39.0 k g/m2 MEDENT ([facility]) Body height 63 [in_i] 63 [in_i] MEDENT ([facility]) 5'3" Body weight 220.00 [lb_av] 220.00 [lb_av] MEDEN T ([facility]) Diastolic blood pressure 74 mm[Hg] 74 mm[Hg] eCW1 ([facility]) Systolic blood pressure 130 mm[Hg] 130 mm[Hg] e CW1 ([facility]) Body temperature 96.2 [degF] 96.2 [degF] eCW1 ( [facility]) Respiratory rate 20 /min 20 /min eCW1 ([facility]) Heart rate 66 /min 66 /min eCW1 ([facility]) Body mass index (BMI) [Ratio] 38.03 kg/m2 38.03 kg/m2 eCW1 ([facility]) Body height 64 [in_i] 64 [in_i] eCW1 ([facility]) Body weight 221.6 [lb_av] 221.6 [lb_av] eCW1 ([facility]) Diastolic blood pressure 70 mm[Hg] 70 mm[Hg] eCW1 ([facility]) Systolic blood pressure 132 mm[Hg] 132 mm[Hg] e CW1 ([facility]) Body temperature 96.6 [degF] 96.6 [degF] eCW1 ( [facility]) Respiratory rate 20 /min 20 /min eCW1 ([facility]) Heart rate 72 /min 72 /min eCW1 ([facility]) Body mass index (BMI) [Ratio] 37.24 kg/m2 37.24 kg/m2 eCW1 ([facility]) Body height 64 [in_us] 64 [in_us] eCW1 ([facility]) Body weight Measured 217.0 [lb_av] 217.0 [lb_av ] eCW1 ([facility]) Patient Treatment Plan of Care Planned Activity Planned Date Details Description Data Source (s) Cyanocobalamin 250 MCG 10/12/2020 12:00:00 AM EST eCW1 ([facility]) Cyanocobalamin 250 MCG 10/12/2020 12:00:00 AM EST eCW1 ([facility]) Cyanocobalamin 250 MCG 10/12/2020 12:00:00 AM EST eCW1 ([facility]) Rosuvastatin calcium 40 MG Oral Tablet 09/29/2020 12:00:00 AM EST eCW1 ([facility]) Rosuvastatin calcium 40 MG Oral Tablet 09/29/2020 12:00:00 AM EST eCW1 ([facility]) Rosuvastatin calcium 40 MG Oral Tablet 09/29/2020 12:00:00 AM EST eCW1 ([facility]) Rosuvastatin calcium 40 MG Oral Tablet 09/29/2020 12:00:00 AM EST eCW1 ([facility]) Rosuvastatin calcium 40 MG Oral Tablet 09/29/2020 12:00:00 AM EST eCW1 ([facility]) Rosuvastatin calcium 40 MG Oral Tablet 09/29/2020 12:00:00 AM EST eCW1 ([facility]) Sitagliptin Phosphate 50 MG 11/25/2019 12:00:00 AM EST eCW1 ([facility]) Sitagliptin Phosphate 50 MG 11/25/2019 12:00:00 AM EST eCW1 ([facility])
--- OUTSIDE RECORDS SUMMARY | 2020-12-11 11:22 | CCD ---
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2 Active 014642333 Problem Cigarette nicotine dependence in remission F17.211 Active 470045874 Problem Essential (primary) hypertension I10 Active 66141170 Problem COPD (chronic obstructive pulmonary disease) J44.9 Active 02565309 Problem Atrial fibrillation I48.91 Active 14912488 Problem Colon cancer screening Z12.11 Active 535663770 Problem Macrocytosis D75.89 Active 203375517 ALLERGIES Allergen (clinical drug ingredient) Drug/Non Drug Allergy do cumented on EMR Reaction Allergy Type Onset Date Status Penicillin (For Allergies Use Only) Rash Drug Allerg y Active ENCOUNTERS from 1950 to 2020-10-02 Encounter Location Date Provider Diagnosis [address] [address] 15 Dec, 2 020 Greg Montiel Encounter for immunization Z23 ; Mixed hyperlipidemia E78.2 ; B12 deficiency E53.8 ; Impaired fasting glucose R73.01 ; Cigarette nicotine dependence in remission F17.211 ; Annual physical exam Z00.00 ; Acquired hypothyroidism E03.9 ; Keratoacanthoma L85.8 ; Macrocytosis D75.89 ; Vitamin D deficiency E55.9 ; COPD (chronic obstructive pulmonary disease) J44.9 ; Atrial fibrillation I48.91 ; 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 ; CKD (chronic kidney disease) stage 3, GFR 30-59 ml/min N18.3 ; Essential (primary) hypertension I10 ; Prostate cancer screening Z12.5 and Colon cancer screening Z12.11 IMMUNIZATIONS Vaccine Route Administration Date Status Influenza [...] Education Language: Question Answer Notes Languages spoken: Lithuanian Yazidi: Question Answer Notes Yazidi 21 Sikh Sexual Hx: Question Answer Notes Had sex [...] REASON FOR REFERRAL No Information VITAL SIGNS Weight 224.8 lbs Sep, Height 64 in Sep, BMI 38.58 kg/m2 Sep, Heart Rate 65 /min Sep, Respiratory Rate 20 /min Sep, Temperature 96.5 degrees Fahrenheit Sep, Oximetry 97% Sep, Blood pressure systolic 142 mm Hg Sep, Blood pressure diastolic 82 mm Hg Sep, MEDICATIONS Medication SIG (Take, Route, Frequency, Duration) [...] hrs prn dyspnea for 25 Active PROCEDURES from 1950 to 2020-10-02 Procedure Date Ordered Result Body Site Immunization: Flublok Quadrivalent (18 years & older) 0.5mL IM (Influenza) 2020-09-29 N/A RESULTS No Results REASON FOR VISIT 5 madiha f/u ok per RT MEDICAL (GENERAL) HISTORY Type Description Date Medical History CAD status post CABG times 16 December 2008 with postoperative atrial fibrillation//s/p IWSTEMI 02/05/14 (presenting troponin 0.3) s/p thrombolysis and ELIAZAR of OM1 and L circumflex, 1 of 3 grafts patent (OMID to LAD)-[place]alaika//01/2016 DPST-intermediate risk, fixed inferior defect-[place] Medical History hyperlipidemia 2B Medical History GERD Medical History impaired fasting glucose Medical History hypertension-borderline LAE, mild PHTH, , mild MR by 01/2016 TTE-[place] Medical History chronic kidney disease stage 3-04/2015 mild B kidney atrophy, R 99, L 109 by 04/2015 US (03/2011 110 and 119 repsectively) Medical History COPD- 10/2012 FEV1 920 cc (33 %)/ratio 69%/asthma mild intermittent Medical History vitamin D deficiency Medical History NAFLD-seen by 08/2014 [place] Medical History B carotid ICA 16-49% narrowing by 01/2016 US Medical History atrial fibrilllation, [id number] et 01/2016 Medical History B12 deficiency-10/2017 parietal [...] Treatment Notes Treatm ent Clinical Notes Sep, Encounter for immunization (ICD-10 - Z23) Sep, Mixed hyperlipidemia (ICD-10 - E78.2) C: Vascepa 2 BID 09/15/20 non 146/37/513 on atorva 80/ezet 10; therefore, atorva 80 to rosuva 40 04/01/20 120/34/459 on atorva 80; therefore, + ezet 10 10/2019 non 115/36/442 06/2019 non 147/40/735, 143, 0.4 on atorva; therefore, + met as per IFG 02/2018 63/57/278, 109, <0.3 on atorva 80 10/2016 41/39/355, 190 08/2016 non 141/36/550! on atorva 80 01/2016 81/41/155 12/2014 72/38/287 08/2014 CPK 111, CRP 0.8 03/2014 85/39/137 on Lipitor 80 02/2014 I changed Pravachol 80 to Lipitor 80 qd (was not done at [facility] 01/2014 IM) 10/2012 122/34/227 on Pravachol 80 qhs Sep, B12 deficiency (ICD-10 - E53.8) hgb as per macro 04/01/20 366; therefore, restarted 250 11/2018 1980 on 1000; therefore, decreased to 250 06/2018 380 10/2017 555 10/2016 371 06/2016 B12 365; therefore, encouraged compliance 11/2018 729 08/2016 RBC folate 635 11/2018 normal SPEP, sIFE s MCB Sep, Impaired fasting glucose (ICD-10 - R73.01) Continue ADA diet/weight loss Contingency: empag father dx c T2DM in 50s 04/01/20 6.1 10/2019 6.4 (91, 40) c TG 442; therefore, + huber 50 06/2019 5.9 c LEONID-IR (97, 42); therefore, increased to 750 BID 11/2018 6.5 06/2018 5.9 02/2018 6.4; therefore, metformin XR 750 AC dinner 07/2017 6.2, but LEONID-IR 10 (98, 42); therefore, encouraged ADA diet/wt loss 03/2017 6.6 08/2016 6.0 06/2018 13 07/2017 9 08/2014 VICTORIANO/creatinine 8 Sep, Cigarette nicotine dependence in remission (ICD- 10 - F17.211) Encouraged to remain off Patient defers LD CT chest lung cancer Sep, Annual physical exam (ICD-10 - Z00.00) Sep, Acquired hypothyroidism (ICD-10 - E03.9) 09/15/20 2.5, 0.9, TPO 77 04/01/20 2.9, 1 on 25 07/2019 4.5, 0.8; therefore, + LT4 25 11/2018 3.7, 0.9 02/2018 3.1, 0.8, TPO Ab 51 10/2016 3.4, 0.9 01/2016 3.6 Sep, Keratoacanthoma (ICD-10 - L85.8) Stable skin exam Contingency: bx 07/19/19 + Efudex BID c occlusion on classic KA L dorsal hand present x 1M c recheck 2-3W Sep, Macrocytosis (ICD-10 - D75.89) favor 2 B12 def/CKD 04/01/20 12.2, 98 06/2019 12.6, 98, r36/1.7 11/2018 13.0, 96 06/2018 12.8, 101, CHr 37 10/2017 12.4, 97, 23%, 121, CHr 39 03/2017 12.7, 97 10/2012 hemoglobin stable at 14.2, 21%, 87 B12/folate as per B12 11/2018 Trent galloway MCB, normal SPEP Sep, Vitamin D deficiency (ICD-10 - E55.9) C: triol 1-2x qW 09/15/20 10.0, 3.9; therefore, held triol 0.25 QOD 04/01/20 9.6, 49 11/2018 9.2, 61 on 0.25 QOD 06/2018 9.7, 53; therefore, back to QOD 02/2018 14, 8.9, 81; therefore, increased to 0.25 QD 03/2017 9.4, 71 10/2016 22, 9.5, 95 06/2016 24, 9.4, PTH 90 on D3 1K; therefore, changed to calcitriol 0.25 MWF 12/2014 23, 9.3, 54, therefore encouraged compliance; but, patient changed to D3 1K QD 2 cost 08/2014 27, 9.9 on Drisdol qW 03/2014 16, 9.6 therefore Drisdol qW restarted 01/2013 46 therefore decreased to q2W 10/2012 vitamin D 17 therefore Drisdol started Sep, COPD (chronic obstructive pulmonary disease) (IC D-10 - J44.9) Stable on regimen 01/2017 i changed to BE 200 c improvement 06/2016 started Dulera 200 2 BID given using albuterol ~2x BID (had deferred maintenance meds in past) c marked improvement of dyspnea and reduced albuterol to ~qod prn Sep, Atrial fibrillation (ICD-10 - I48.91) Patient remains asymptomatic met tar for rate control, apixiban for anti-coagulation 01/2016 new-onset 01/2016 metoprolol 25 BID changed to bisoprolol 2.5 BID as per HTN given COPD and Eliquis 5 BID started Sep, CAD of autologous bypass graft (ICD-10 - I25.810 ) Patient remains asymptomatic on clopid 75 01/2016 asprin 81 held given apixiban initiation for AF 01/2014 Plavix 75 qd started s/p STEMI c 2 ELIAZAR, by cath c 75-80% stenosis OMID to LAD anastomosis, given aggressive CAD of bypassed vessels, elected lifelong aspirin/Plavix unless contraindication Follows with Dr. Dai/Aniket Sep, CKD (chronic kidney disease) stage 3, GFR 30-59 ml/min (ICD-10 - N18.3) Avoid ALL NSAIDS 04/2015 B renal US c mild B kidney atrophy, R 99, L 109 mm by 04/2015 US (03/2011 110 and 119 repsectively), unable visualize renal arteries by US 2 body habitus; therefore MRA renal arteries ordered but insurance refused 09/15/20 27/1.5, 4.4 11/2018 22/1.5, 4.6 06/2018 19/1.4, 4.9 02/2018 29/1.4, 4.8, 2.2 on K 10 QD 07/2017 24/1.6, 4.6 03/2017 21/1.4, 4.6, 2.0 10/2016 22/1.6, 4.7 on K 10 08/2016 23/1.6, 4.7 06/2016 27/1.4, 4.8 01/2016 20/1.2 05/2015 22/1.4, 4.5, Mg 1.9 off ACEI 04/2015 33/1.7, 5.0, therefore lisinopril 10 QD stopped 03/2011 up to 05/11.19 July 2010 stable at 21/1.2 PTH as per vitamin D Sep, Essential (primary) hypertension (ICD-10 - I10) Good control on amlo 5 qAM and met tar 2.5 BID K/Mg as per CKD 02/2018 increased amlo 2.5 to 5 qAM 08/2015 added almo 2.5 QD 05/2015 held lisinopril 10 QD 2 increased cr as per CKD 09/11/13 EKG NSR 60 bpm 15 Sep, 2020 Prostate cancer screening (ICD-10 - Z12.5) Patient without LUTs x chronic nocturia 1-2 10/2019 0.2 06/2018 0.2 07/2017 0.2 08/2016 PSA stable at 0.2 15 Sep, 2020 Colon cancer screening (ICD-10 - Z12.11) Patient refuses screening colonoscopy Sep, Other Prevention Guide lines, Men Ages 50 to 64 material was printed PLAN OF TREATMENT Medication Medication Name Sig [...] Orally Twice a day for 30 day(s) Treatment Notes Assessment Notes Clinical Notes Prostate cancer screening Patient withou t LUTs x chronic nocturia - 0. 0.2102017 0.211 PSA stable at 0.2 Mixed hyperlipidemia C: Vascepa 2 BID09/15/20 non 146/37/513 on atorva 80/ezet 10; therefore, atorva 80 to rosuva 406 120/34/459 on atorva 80; therefore, + ezet non 115//2018 non 147/40/735, 143, 0.4 on atorva; therefore, + met as per IFG02/2018 63/57/278, 109, <0.3 on atorva 41/39/355, 15268 non 141/36/550! on atorva 8001/2016 /2014 72/38/4631608/2014 CPK 111, CRP 0. 85/39/137 on Lipitor 8002/2014 I changed Pravachol 80 to Lipitor 80 qd (was not done at [facility] 01/2014 IM)10/2012 122/34/227 on Pravachol 80 qhs Essential (primary) hypertension Good co ntrol on amlo 5 qAM and met tar 2.5 BIDK/Mg as per CKD02/2018 increased amlo 2.5 to 5 qAM110/2014 added almo 2.5 QD05/2015 held lisinopril 10 QD 2 increased cr as per CKD09/11/13 EKG NSR 60 bpm B12 deficiency hgb as per macro04/01 366; therefore, restarted 1980 on 1000; [place], [place] [address]/2017 B12 365; therefore, encouraged compliance11/2018 RBC folate normal SPEP, sIFE s MCB Impaired fasting glucose Continue ADA di et/weight lossContingency: empagfather dx c T2DM in 5004/01/20 6.08/2020 6.4 (91, 40) c TG 442; therefore, + huber 5.9 c LEONID-IR (97, 42); therefore, increased to 750 BID11/2018 6. 5. 6.4; therefore, metformin XR 750 AC cgcocr62/2017 6.2, but LEONID-IR 10 (98, 42); therefore, encouraged ADA diet/wt loss03/2017 6.611/2016 6.06/2018 1310/2017 911/2014 VICTORIANO/creatinine 8 Colon cancer screening Patient refuses s creening colonoscopy Cigarette nicotine dependence in remission Encouraged to remain offPatient defers LD CT chest lung cancer Acquired hypothyroidism 09/15/20 2.5, 0.9 , TPO 776/ 2.9, 1 on 4.5, 0.8; therefore, + LT4 252 3.7, 0. 3.1, 0.8, TPO Ab 511 3.4, 0. 3.6 Keratoacanthoma Stable skin examCont ingency: bx07/19/19 + Efudex BID c occlusion on classic KA L dorsal hand present x 1M c recheck 2-3W Macrocytosis favor 2 B12 def/CKD 12.2, 989/2018 12.6, 98, r36/1. 13.0, 969/2017 12.8, 101, CHr 371/2017 12.4, 97, 23%, 121, CHr 396/2016 12.7, 971/2013 hemoglobin stable at 14.2, 21%, 87B12/folate as per B1211/2018 sIFE s MCB, normal SPEP CKD (chronic kidney disease) stage 3, GFR 30-59 ml/min Avoid ALL NSAIDS04/2015 B renal US c mild B kidney atrophy, R 99, L 109 mm by 04/2015 US (03/2011 110 and 119 repsectively), unable visualize renal arteries by US 2 body habitus; therefore MRA renal arteries ordered but insurance ietknjy10/1/20 27/1.5, 4. 22/1.5, 4. 19/1.4, 4. 29/1.4, 4.8, 2.2 on K 10 QD10 24/1.6, 4. 21/1.4, 4.6, 2.10/2016 22/1.6, 4.7 on K 1011/2015 23/1.6, 4. 27/1.4, 4. 20/1. 22/1.4, 4.5, Mg 1.9 off ACEI04/2015 33/1.7, 5.0, therefore lisinopril 10 QD stopped03/2011 up to 05/11.4October 2009 stable at 21/1.2PTH as per vitamin D CAD of autologous bypass graft Patient r ematasha asymptomatic on clopid asprin 81 held given apixiban initiation for AF01/2014 Plavix 75 qd started s/p STEMI c 2 ELIAZAR, by cath c 75-80% stenosis OMID to LAD anastomosis, given agg ressive CAD of bypassed vessels, elected lifelong aspirin/Plavix unless contraindicationFollows with Dr. Dai/Aniket Vitamin D deficiency C: triol 1-2x qW09/15/20 10.0, 3.9; therefore, held triol 0.25 QOD04/01/20 9.6, 492 9.2, 61 on 0.25 QOD06/2018 9.7, 53; therefore, back to QOD02/2018 14, 8.9, 81; therefore, increased to 0.25 QD03/2017 9.4, 711 22, 9.5, 959 24, 9.4, PTH 90 on D3 1K; therefore, changed to calcitriol 0.25 23, 9.3, 54, therefore encouraged compliance; but, patient changed to D3 1K QD 2 cost08/2014 27, 9.9 on Drisdol qW03/2014 16, 9.6 therefore Drisdol qW restarted01/2013 46 therefore decreased to q2W10/2012 vitamin D 17 therefore Drisdol started COPD (chronic obstructive pulmonary disease) Stable on regimen01/2017 i changed to BE 200 c improvement06/2016 started Dulera 200 2 BID given using albuterol ~2x BID (had deferred maintenance meds in past) c marked improvement of dyspnea and reduced albuterol to ~qod prn Atrial fibrillation Patient remains asym ptomaticmet tar for rate control, apixiban for anti-coagulation01/2016 new-onset01/2016 metoprolol 25 BID changed to bisoprolol 2.5 BID as per HTN given COPD and Eliquis 5 BID started Future Test Test Name Order Date VITAMIN B12 LEVEL [id number] HEMOGLOBIN A1c [id number] INSULIN LEVEL [id number] Comprehensive Metabolic Profile (CMP) [id number] LIPID PANEL (CARDIAC RISK) [id number] C REACTIVE PROTEIN QUANTITATIV (At [facility]) [id number] CPK CREATINE PHOSPHOKINASE [id number] PSA SCREENING [id number] VITAMIN D 25-HYDROXY [id number] PTH INTACT [id number] Next Appt Details first AM or afternoon apt!!!!!!! 4M, BW 1W prior Reason: Provider Name:Greg Montiel, 2021-01-25 0 9:15:00 AM, [address] [place], [address], Insurance Providers Payer Name Payer Address Payer Phone Insured Name Patient Relati onship to Insured Coverage Start Date Coverage End Date [facility] [address] [facility] [phone] EVELIO VIVEROS self MEDICAID [employer] [address] [facility] [address] EVELIO VIVEROS self
--- OUTSIDE RECORDS SUMMARY | 2020-12-11 11:22 | CCD ---
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 Active 2 07551451505097 Problem Impaired fasting glucose R73.01 Active 3512596 07 Problem CKD (chronic kidney disease) stage 3, GFR 30-59 ml/min N18.3 Active 021553909 Problem Prostate cancer screening Z12.5 Active 967682 005 Problem Vitamin D deficiency E55.9 Active 09576019 Problem B12 deficiency E53.8 Active 515775110 Problem Acquired hypothyroidism E03.9 Active 76821123 2 Problem Mixed hyperlipidemia E78.2 Active 884288449 Problem Cigarette nicotine dependence in remission F17.211 Active 151533100 Problem Essential (primary) hypertension I10 Active 82341063 Problem COPD (chronic obstructive pulmonary disease) J44.9 Active 68486772 Problem Atrial fibrillation I48.91 Active 81428576 Problem Colon cancer screening Z12.11 Active 721618431 Problem Macrocytosis D75.89 Active 090724153 ALLERGIES Allergen (clinical drug ingredient) Drug/Non Drug Allergy do cumented on EMR Reaction Allergy Type Onset Date Status Penicillin (For Allergies Use Only) Rash Drug Allerg y Active ENCOUNTERS from 1950 to 2020-09-29 Encounter Location Date Provider Diagnosis [address] [address] 06 Apr, 2 020 Greg Montiel Mixed hyperlipidemia E78.2 ; B12 deficiency E53.8 [...] Education Language: Question Answer Notes Languages spoken: Maori Episcopal: Question Answer Notes Episcopal 21 Sabianist Sexual Hx: Question Answer Notes Had sex [...] FOR REFERRAL No Information VITAL SIGNS Weight 221.6 lbs Apr, Height 64 in Apr, BMI 38.03 kg/m2 Apr, Heart Rate 66 /min Apr, Respiratory Rate 20 /min Apr, Temperature 96.2 degrees Fahrenheit Apr, Oximetry 96% RA Apr, Blood pressure systolic 130 mm Hg Apr, Blood pressure diastolic 74 mm Hg Apr, MEDICATIONS Medication SIG (Take, Route, Frequency, Duration) [...] Information RESULTS No Results REASON FOR VISIT first AM or afternoon apt 4M MEDICAL (GENERAL) HISTORY Type Description Date Medical History CAD status post CABG times 16 December 2008 with postoperative atrial fibrillation//s/p IWSTEMI 02/05/14 (presenting troponin 0.3) s/p thrombolysis and ELIAZAR of OM1 and L circumflex, 1 of 3 grafts patent (OMID to LAD)-Malaika//01/2016 DPST-intermediate risk, fixed inferior defect-[place] Medical History hyperlipidemia 2B Medical History GERD Medical History impaired fasting glucose Medical History hypertension-borderline LAE, mild PHTH, , mild MR by 01/2016 TTE-[place] Medical History chronic kidney disease stage 3-04/2015 mild B kidney atrophy, R 99, L 109 by 04/2015 US (03/2011 110 and 119 repsectively) Medical History COPD- 10/2012 FEV1 920 cc (33 %)/ratio 69%/asthma mild intermittent Medical History vitamin D deficiency Medical History NAFLD-seen by 08/2014 US Medical History B carotid ICA 16-49% narrowing by 01/2016 US Medical History atrial fibrilllation, [id number] et 01/2016 Medical History B12 deficiency-10/2017 parietal [...] Notes Treatment Notes Treatm ent Clinical Notes Apr, Mixed hyperlipidemia (ICD-10 - E78.2) 04/01/20 120/34/459 on atorva 80; therefore, + [...] Lipitor 80 qd (was not done at [facility] 01/2014 IM) 10/2012 122/34/227 on Pravachol 80 qhs LFTs as per ALP Apr, B12 deficiency (ICD-10 - E53.8) hgb as per macro 04/01/20 366; therefore, restarted 250 11/2018 1980 on 1000; therefore, decreased to 250 06/2018 380 10/2017 555 10/2016 371 06/2016 B12 365; therefore, encouraged compliance 11/2018 729 08/2016 RBC folate 635 11/2018 normal SPEP, sIFE s MCB Apr, Impaired fasting glucose (ICD-10 - R73.01) Continue [...] 06/2018 13 07/2017 9 08/2014 VICTORIANO/creatinine 8 Apr, Cigarette nicotine dependence in remission (ICD- 10 - F17.211) Encouraged to remain off Patient defers LD CT chest lung cancer Apr, Annual physical exam (ICD-10 - Z00.00) Apr, Acquired hypothyroidism (ICD-10 - E03.9) 04/01/20 2.9, 1 on 07/2019 4.5, 0.8; therefore, + LT4 11/2018 3.7, 0.9 02/2018 3.1, 0.8, TPO Ab 51 10/2016 3.4, 0.9 01/2016 3.6 Apr, Keratoacanthoma (ICD-10 - L85.8) Stable skin exam Contingency: bx 07/19/19 + Efudex BID c occlusion on classic KA L dorsal hand present x 1M c recheck 2-3W Apr, Macrocytosis (ICD-10 - D75.89) favor 2 B12 def/CKD 04/01/20 12.2, 98 06/2019 12.6, 98, r36/1.7 11/2018 13.0, 96 06/2018 12.8, 101, CHr 37 10/2017 12.4, 97, 23%, 121, CHr 39 03/2017 12.7, 97 10/2012 hemoglobin stable at 14.2, 21%, 87 B12/folate as per B12 11/2018 Trent galloway MCB, normal SPEP Apr, Vitamin D deficiency (ICD-10 - E55.9) 04/01/20 9.6, 49 11/2018 9.2, 61 on [...] 10/2012 vitamin D 17 therefore Drisdol started Apr, COPD (chronic obstructive pulmonary disease) (IC D-10 - J44.9) Stable on regimen 01/2017 i changed to BE 200 c improvement 06/2016 started Dulera 200 2 BID given using albuterol ~2x BID (had deferred maintenance meds in past) c marked improvement of dyspnea and reduced albuterol to ~qod prn Apr, Atrial fibrillation (ICD-10 - I48.91) Patient remains asymptomatic met tar for rate control, apixiban for anti-coagulation 01/2016 new-onset 01/2016 metoprolol 25 BID changed to bisoprolol 2.5 BID as per HTN given COPD and Eliquis 5 BID started Apr, CAD of autologous bypass graft (ICD-10 - I25.810 ) Patient remains asymptomatic on clopid 75 01/2016 asprin 81 held given apixiban initiation for AF 01/2014 Plavix 75 qd started s/p STEMI c 2 ELIAZAR, by cath c 75-80% stenosis OMID to LAD anastomosis, given aggressive CAD of bypassed vessels, elected lifelong aspirin/Plavix unless contraindication Follows with Dr. Dai/Aniket Apr, CKD (chronic kidney disease) stage 3, GFR 30-59 ml/min (ICD-10 - N18.3) Avoid ALL NSAIDS 04/2015 B renal US c mild B kidney atrophy, R 99, L 109 mm by 04/2015 US (03/2011 110 and 119 repsectively), unable visualize renal arteries by US 2 body habitus; therefore MRA renal arteries ordered but insurance refused 04/01/20 27/1.5, 4.6 11/2018 22/1.5, 4.6 06/2018 19/1.4, 4.9 02/2018 29/1.4, 4.8, 2.2 on K 10 QD 07/2017 24/1.6, 4.6 03/2017 21/1.4, 4.6, 2.0 10/2016 22/1.6, 4.7 on K 10 08/2016 23/1.6, 4.7 06/2016 27/1.4, 4.8 01/2016 20/1.2 05/2015 22/1.4, 4.5, Mg 1.9 off ACEI 04/2015 33/1.7, 5.0, therefore lisinopril 10 QD stopped 03/2011 up to /1.19 July 2010 stable at 21/1.2 PTH as per vitamin D Apr, Essential (primary) hypertension (ICD-10 - I10) Good control on amlo 5 qAM and met tar 2.5 BID K/Mg as per CKD 02/2018 increased amlo 2.5 to 5 qAM 08/2015 added almo 2.5 QD 05/2015 held lisinopril 10 QD 2 increased cr as per CKD 09/11/13 EKG NSR 60 bpm Apr, Prostate cancer screening (ICD-10 - Z12.5) Patient without LUTs x chronic nocturia 1-2 10/2019 0.2 06/2018 0.2 07/2017 0.2 08/2016 PSA stable at 0.2 Apr, Colon cancer screening (ICD-10 - Z12.11) Patient refuses screening colonoscopy Apr, Other Prevention Guide lines, Men Ages 50 [...] Patient withou t LUTs x chronic nocturia 1- 0. 0.210 0.211 PSA stable at 0.2 Mixed hyperlipidemia 04/01/20 120/34/459 on atorva 80; therefore, + ezet non 115//2019 non 147/40/735, 143, 0.4 on atorva; therefore, + met as per IFG02/2018 63/57/278, 109, <0.3 on atorva 41/39/355, 91442/2016 non 141/36/550! on atorva /2015 72/38/40416/2013 CPK 111, CRP 0. 85/39/137 on Lipitor 8002/2014 I changed Pravachol 80 to Lipitor 80 qd (was not done at [facility] p 01/2014 IM)10/2012 122/34/227 on Pravachol 80 qhsLFTs as per ALP Essential (primary) hypertension Good co ntrol on amlo 5 qAM and met tar 2.5 BIDK/Mg as per CKD02/2018 increased amlo 2.5 to 5 qAM110/2014 added almo 2.5 QD05/2015 held lisinopril 10 QD 2 increased cr as per CKD09/11/13 EKG NSR 60 bpm B12 deficiency hgb as per macro04/01 366; therefore, restarted 1980 [place] 1000; [place], [place] [address]/2017 B12 365; therefore, encouraged compliance11/20189110/2015 RBC folate normal SPEP, sIFE s MCB Impaired fasting glucose Continue ADA di et/weight lossContingency: empagfather dx c T2DM in 5004/01/20 6.08/2020 6.4 (91, 40) c TG 442; therefore, + huber 5.9 c LEONID-IR (97, 42); therefore, increased to 750 BID11/2018 6. 5. 6.4; therefore, metformin XR 750 AC ajwomu74/2017 6.2, but LEONID-IR 10 (98, 42); therefore, encouraged ADA diet/wt loss03/2017 6.611/2015 6.06/2018 1310 91/2014 VICTORIANO/creatinine 8 Colon cancer screening Patient refuses s creening colonoscopy Cigarette nicotine dependence in remission Encouraged to remain offPatient defers LD CT chest lung cancer Acquired hypothyroidism 04/01/20 2.9, 1 o n 4.5, 0.8; therefore, + LT4 3.7, 0. 3.1, 0.8, TPO Ab 3.4, 0. 3.6 Keratoacanthoma Stable skin examCont ingency: bx/02/01 + Efudex BID c occlusion on classic [...] therefore MRA renal arteries ordered but insurance refused04/01/20 27/1.5, 4. 22/1.5, 4. 19/1.4, 4. 29/1.4, 4.8, 2.2 on K 10 QD10/2016 24/1.6, 4. 21/1.4, 4.6, 2.10/2016 22/1.6, 4.7 on K 1011/2015 23/1.6, 4. 27/1.4, 4. 20/1. 22/1.4, 4.5, Mg 1.9 off ACEI04/2015 33/1.7, 5.0, therefore lisinopril 10 QD stopped03/2011 up to /1.4October 2009 stable at 21/1.2PTH as per vitamin D CAD of autologous bypass graft Patient r emains asymptomatic on clopid 7501/2016 asprin 81 held given apixiban initiation for AF01/2014 Plavix 75 qd started s/p STEMI c 2 ELIAZAR, by cath c 75-80% stenosis OMID to LAD anastomosis, given agg ressive CAD of bypassed vessels, elected lifelong aspirin/Plavix unless contraindicationFollows with Dr. Dai/Aniket Vitamin D deficiency 04/01/20 9.6, 19 9.2, 61 on 0.25 QOD06/2018 9.7, 53; [...] given COPD and Eliquis 5 BID started Next Appt Details first AM or afternoon apt!!!!!!! 4M, BW 1W prior Reason: Provider Name:Greg Montiel, 2021-01-25 0 9:15:00 AM, [address] [place], [address], Insurance Providers Payer Name Payer Address Payer Phone Insured Name Patient Relati onship to Insured Coverage Start Date Coverage End Date MEDICAID MCAUTEditorially [address] [facility] [address] [facility] [address] [facility] [phone] EVELIO VIVEROS
--- OUTSIDE RECORDS SUMMARY | 2020-12-11 11:22 | CCD ---
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 Active 2 70498166053850 Problem Impaired fasting glucose R73.01 Active 9626899 07 Problem CKD (chronic kidney disease) stage 3, GFR 30-59 ml/min N18.3 Active 284334180 Problem Prostate cancer screening Z12.5 Active 691700 005 Problem Vitamin D deficiency E55.9 Active 26428248 Problem B12 deficiency E53.8 Active 311463704 Problem Acquired hypothyroidism E03.9 Active 01538033 2 Problem Mixed hyperlipidemia E78.2 Active 136204787 Problem Cigarette nicotine dependence in remission F17.211 Active 663321375 Problem Essential (primary) hypertension I10 Active 63848970 Problem COPD (chronic obstructive pulmonary disease) J44.9 Active 84855647 Problem Atrial fibrillation I48.91 Active 62120672 Problem Colon cancer screening Z12.11 Active 920637632 Problem Macrocytosis D75.89 Active 201020488 ALLERGIES Allergen (clinical drug ingredient) Drug/Non Drug Allergy do cumented on EMR Reaction Allergy Type Onset Date Status Penicillin (For Allergies Use Only) Rash Drug Allerg y Active ENCOUNTERS from 1950 to 2020-09-19 Encounter Location Date Provider Diagnosis [address] [address] Sep, 020 Greg Montiel IMMUNIZATIONS Vaccine Route [...] Education Language: Question Answer Notes Languages spoken: Japanese Jehovah'S Witness: Question Answer Notes Jehovah'S Witness 21 Orthodoxy Sexual Hx: Question Answer Notes Had sex [...] Notes Start Da te End Date Status MetFORMIN HCl ER 750 MG 1 tab Orally AC BID for 30 Active Calcitriol 0.25 MCG 1 capsule Orally every other day for 30 Active Sitagliptin Phosphate 50 MG 1 tablet Orally Once a day for 90 day(s) Active Cyanocobalamin 250 MCG 1 tablet Orally Once a day for 30 day(s) Active ProAir HFA 108 (90 Base) MCG/ACT 2 puffs as needed Inh alation every 6 hrs prn dyspnea for 25 Active Clopidogrel Bisulfate 75 MG 1 tablet Orally Once a day for 30 day(s) Active AmLODIPine Besylate 5 MG 1 tablet Orally every morning for 30 day(s) Active Ezetimibe 10 MG 1 tablet Orally Once a day for 30 Active Breo Ellipta 200-25 MCG/INH 1 puff Inhalation Once a day for 30 Active Atorvastatin Calcium 80 MG 1 tablet Orally Once a day for 90 days Active Potassium Chloride CR 10 MEQ ER 1 tab(s) orally Once a day for 30 day (s) Active Metoprolol Tartrate 50 MG 1 tablet with food Orally Twice a day for 3 0 Active Clopidogrel Bisulfate 75 MG 1 tablet Orally Once a day for 30 Active Levothyroxine Sodium 25 MCG 1 tablet on an empty stoma ch in the morning Orally Once a day for 30 Active Apixaban 5 MG 1 strip Orally bid for 30 Active PROCEDURES No Information RESULTS No Results REASON FOR VISIT PA vitamin B-12 tab, QD MEDICAL (GENERAL) HISTORY Type Description Date Medical History CAD status post CABG times 16 December 2008 with postoperative atrial fibrillation//s/p IWSTEMI 02/05/14 (presenting troponin 0.3) s/p thrombolysis and ELIAZAR of OM1 and L circumflex, 1 of 3 grafts patent (OMID to LAD)-Malaika//01/2016 DPST-intermediate risk, fixed inferior defect-[place] Medical History hyperlipidemia 2B Medical History GERD Medical History impaired fasting glucose Medical History hypertension-borderline LAE, mild PHTH, , mild MR by 01/2016 TTE-[place] Medical History chronic kidney disease stage 3-04/2015 mild B kidney atrophy, R 99, L 109 by 04/2015 US (03/2011 110 and 119 repsectively) Medical History COPD- 10/2012 FEV1 920 cc (33 %)/ratio 69%/asthma mild intermittent Medical History vitamin D deficiency Medical History NAFLD-seen by 08/2014 [place] Medical History B carotid ICA 16-49% narrowing by 01/2016 [place] Medical History atrial fibrilllation, [id number] et 01/2016 Medical History B12 deficiency-10/2017 parietal [...] Medication Name Sig Start Date Stop Date Cyanocobalamin 250 MCG 1 tablet Orally Once a day for 30 day(s) Clopidogrel Bisulfate 75 MG 1 tablet Orally Once a day for 30 da y(s) Sitagliptin Phosphate 50 MG 1 tablet Orally Once a day for 90 da y(s) ProAir HFA 108 (90 Base) MCG/ACT 2 puffs as needed Inh alation every 6 hrs prn dyspnea for 25 AmLODIPine Besylate 5 MG 1 tablet Orally every morning for 30 da y(s) Ezetimibe 10 MG 1 tablet Orally Once a day for 30 Levothyroxine Sodium 25 MCG 1 tablet on an empty stoma ch in the morning Orally Once a day for 30 Breo Ellipta 200-25 MCG/INH 1 puff Inhalation Once a day for 30 Calcitriol 0.25 MCG 1 capsule Orally every other day for 30 Potassium Chloride CR 10 MEQ ER 1 tab(s) orally Once a day for 3 0 day(s) Metoprolol Tartrate 50 MG 1 tablet with food Orally Twice a day for 30 Apixaban 5 MG 1 strip Orally bid for 30 Atorvastatin Calcium 80 MG 1 tablet Orally Once a day for 90 day s MetFORMIN HCl ER 750 MG 1 tab Orally AC BID for 30 Next Appt Details Provider Name:Greg Montiel, 2020-09-29 1 0:00:00 AM, [address] [place] [address], [phone], Insurance Providers Payer Name Payer Address Payer Phone Insured Name Patient Relati onship to Insured Coverage Start Date Coverage End Date [facility] [address] [facility] [phone] EVELIO VIVEROS self MEDICAID [facility] [place] [address] [facility] [address] EVELIO VIVEROS self
--- OUTSIDE RECORDS SUMMARY | 2020-12-11 11:22 | CCD | Continuity of Care Document ---
Author Author Faustino MARCIAL MD Organization Unknown Address [facility] [place] [address] Phone [phone] Care Team Providers Care Investment Banking Manager Name Role Phone Greg Montiel MD AUTM [phone] Eugene Dai MD AUTM [phone] Reynaldo George MD AUTM [phone] Problems Active Problems Provider Date Patient post percutaneous transluminal coronary angiop lasty ARIELLE Escudero Onset: 02/23/2018 Paroxysmal atrial fibrillation ARIELLE Escuedro Onset: 0 02/23/2018 Electrocardiogram abnormal ARIELLE Escudero Onset: 02/23 Mitral valve disorder ARIELLE Escudero Onset: 02/23/2018 Obesity ARIELLE Escudero Onset: 02/23/2018 Dietary management surveillance ARIELLE Escudero Onset: 02/23/2018 Atherosclerotic heart disease of [place] coronary arter y without angina pectoris ARIELLE [...] SIG Qnty Indications Ordering Provide r Date Januvia 50mg Tablets 1 by mouth every [...] by mouth twice a day Unknown 02/24/2019 Calcitriol 0.25mcg Capsules 1 by mouth every other day Greg Montiel MD 08/26/2018 Breo Ellipta 200-25mcg/Inh Aerosol 1 puff daily [...] chest pain 5bottles Faustino Marcial MD 05/12/2014 Atorvastatin Calcium 80mg Tablets 1 by mouth every night at bedtime 90tabs Greg Montiel MD Immunizations Description No Information Available Vital Signs [...] Date Facility Test Result H/L Range Note CBC without Differential 04/01/2020 [facility] - not inter faced (315)- - White Blood Count 7.3 4.0-10.0 Red Blood Count 3.79 Low 4.30-6.10 Platelets 262 150-450 Hemoglobin 12.2 Hematocrit 37.0 CMP 04/01/2020 [facility] - not interfaced (315)- - Albumin Serum/Plasma 4.0 Alt - SGPT 32 Calcium Ser/Plasma Mass/Vol 9.6 Carbon Dioxide Ser/Plasm 28 Chloride Serum/Plasma 103 Alkaline Phosphatase 122 Potassium 4.6 Protein Total 7.8 Sodium 137 Ast - Sgot 21 BUN - Urea Nitrogen 27 Glucose 83 70-100 Creatinine For GFR 49.4 Laboratory test finding 04/01/2020 [facility] - not interf aced (315)- - Free T4 0.99 Thyroid Stimulating Hormone 2.930 Lipid Profile/Cardiac Risk Pro 04/01/2020 [facility] - not interfaced (315)- - Triglycerides 459 High <150 Cholesterol 154 <200 HDL 34 Low >40.0 LDL Cholesterol 120 Chol/HDL Ratio 4.529 <5 Procedures Date Code Description Status 06/15/2020 31611 Treadmill/Pharmacological Monito ring Completed 06/15/2020 41169 Myocardial Perfusion Spect Multi ple Completed 05/04/2020 24389 ECG 12-Lead Completed Medical Devices Description No Information Available Encounters Type Date Location Provider Dx Diagnosis Office Visit 07/31/2020 3:27p Main Office Faustino [...] Obesity, unspecified I11.9 [facility] 05/04/2020 10:15a Main Office ARIELLE Escudero I11.9 Hypertensive heart disease without heart failure I34.0 Nonrheumatic mitral (valve) insufficiency I48.0 Paroxysmal atrial fibrillati on I25.10 Athscl heart disease of [place] ve coronary artery w/o ang pctrs R94.31 Abnormal electrocardiogram [ ECG] [EKG] E66.9 Obesity, unspecified Z71.3 Dietary counseling and surve illance Office Visit 04/27/2020 10:13a Main Office Faustino Marcial MD I11.9 Hypertensive heart disease without heart failure I34.0 Nonrheumatic mitral (valve) insufficiency I48.0 Paroxysmal atrial fibrillati on E66.9 Obesity, unspecified Office Visit 03/26/2020 1:44p Main Office Faustino Marcial MD I11.9 Hypertensive heart disease without heart failure I34.0 Nonrheumatic mitral (valve) insufficiency I48.0 Paroxysmal atrial fibrillati on E66.9 Obesity, unspecified Assessments Date Code Description Provider 07/31/2020 I34.0 Nonrheumatic mitral (valve) insu fficiency Faustino Marcial MD 07/31/2020 I48.0 Paroxysmal atrial fibrillation Aman Marcial MD 07/31/2020 E66.9 Obesity, unspecified Faustino mcfarlane MD 07/03/2020 I34.0 Nonrheumatic mitral (valve) insu fficiency Faustino Marcial MD 07/03/2020 I48.0 Paroxysmal atrial fibrillation Aman Marcial MD 07/03/2020 E66.9 Obesity, unspecified Faustino mcfarlane MD 06/15/2020 I25.10 Atherosclerotic heart disease of [place] coronary artery with Stress Nuclear/Reg Treadmill 06/02/2020 I34.0 Nonrheumatic mitral (valve) insu fficiency Faustino Marcial MD 06/02/2020 I48.0 Paroxysmal atrial fibrillation Aman Marcial MD 06/02/2020 E66.9 Obesity, unspecified Faustino mcfarlane MD 06/02/2020 I11.9 Hypertensive heart disease witho ut heart failure Faustino Marcial MD 05/04/2020 I11.9 Hypertensive heart disease witho ut heart failure ARIELLE Escudero 05/04/2020 I34.0 Nonrheumatic mitral (valve) insu fficiency ARIELLE Escudero 05/04/2020 I48.0 Paroxysmal atrial fibrillation A ARIELLE Hdz 05/04/2020 I25.10 Atherosclerotic heart disease of [place] coronary artery with ARIELLE Escudero 05/04/2020 R94.31 Abnormal electrocardiogram [ECG] [EKG] ARIELLE Escudero 05/04/2020 E66.9 Obesity, unspecified ARIELLE Perez 05/04/2020 Z71.3 Dietary counseling and surveilla nce ARIELLE Escudero 04/27/2020 I11.9 Hypertensive heart disease witho nh heart failure Faustino Marcial MD 04/27/2020 I34.0 Nonrheumatic mitral (valve) insu fficiency Faustino Marcial MD 04/27/2020 I48.0 Paroxysmal atrial fibrillation Aman Marcial MD 04/27/2020 E66.9 Obesity, unspecified Faustino mcfarlane MD 03/26/2020 I11.9 Hypertensive heart disease witho nh heart failure Faustino Marcial MD 03/26/2020 I34.0 Nonrheumatic mitral (valve) insu fficiency Faustino Marcial MD 03/26/2020 I48.0 Paroxysmal atrial fibrillation Aman Marcial MD 03/26/2020 E66.9 Obesity, unspecified Faustino mcfarlane MD Plan of Treatment Future Appointment(s):* 11/04/2020 10:15 am - ARIELLE Escudero at Main Office 05/04/2020 - ARIELLE Escudero* [...] palpitations. * I25.10 Atherosclerotic heart disease of [place] coronary artery with* Recommendations:* Please call the [...] Referral Status Appt Date Mesfin Chen MD [facility] AUTH EMR - EXPIRES 07/10/20. [place] d [id number] [address] [phone]
[2020-12-11] MEDS ORDERED: NORCO, ANEXSIA 5/325MG TABLET (HYDROcodone/ACETAMINOPHEN) PO PRN (11:55)
--- NOTE | 2020-12-11 12:24 | REP ---
INDICATION: FALL. COMPARISON: 01/26/2016 TECHNIQUE: Noncontrast axial images with soft tissue and bone window settings. Coronal reconstruction provided. FINDINGS: Ventricles are midline the generally symmetric and size only marginally increased over the past 5 years. There is no midline shift. The ventricular size is proportionate to the mild diffuse cerebral atrophy, age appropriate. The 3rd and 4th ventricles also unremarkable. Basal ganglia appear symmetric and unremarkable. Wolf-white junction differentiation is well maintained. There is no vascular territory infarct, intra or extra-axial hemorrhage, mass or mass effect. No extra-axial fluid collection. Brainstem was intact. Cerebellum shows no significant atrophy or mass. There is no posterior fossa bleed. Basal cisterns are intact. Mastoids, sphenoid and ethmoid air cells show no mucosal thickening or opacification. That portion of left maxillary antrum was unremarkable. The right maxillary antrum is diminutive and opacified appears to be some surgical change in the right paranasal region with uncinectomy. Orbits and contents grossly symmetric. Skull base and calvarium show no fracture or focal lesion. Some atherosclerotic calcifications are seen in the carotid siphons. IMPRESSION: Negative noncontrast CT brain for any acute finding. No intracranial hemorrhage, acute infarct, mass or mass effect. Ventricular size proportionate to the mild diffuse cerebral atrophy. Some chronic changes in the diminutive and partially opacified right maxillary sinus and some postoperative changes in the right ethmoid region. Sinus air cells, mastoid skull base and calvarium otherwise unremarkable. <Electronically signed by Kwan Rodriguez > 12/11/20 3715
--- NOTE | 2020-12-11 13:04 | REP ---
INDICATION: TRAUMA. COMPARISON: AP portable 01/26/2016 TECHNIQUE: Two views FINDINGS: Sternotomy wires and numerous mediastinal clips again seen. There is no gross cardiomegaly or vascular redistribution. The aorta is calcified and ectatic but without aneurysm. Airway midline no widening of the mediastinum. The lung caldwell are well inflated. Some mild right lateral pleural thickening in the mid chest is unchanged. No gross effusion or dense consolidation. No parenchymal mass. No free air under the diaphragm. Visualized bones grossly intact. IMPRESSION: 1. No acute cardiopulmonary change. Sternotomy wires and mediastinal clips from prior cardiac surgery. No gross cardiomegaly, vascular redistribution or pulmonary edema. <Electronically signed by Kwan Rodriguez > 12/11/20 1300
--- NOTE | 2020-12-11 13:11 | REP ---
INDICATION: TRAUMA. COMPARISON: Chest 12/11/2020, right rib series 12/01/2011 TECHNIQUE: Four views of the right ribs FINDINGS: The inferior margin of the scapula projects over the anterior 5th rib giving a pseudo sclerotic focus. However on the oblique view there is loss of the cortical margin that may reflect a cortical fracture of that anterior 5th rib. The other ribs are without visible or displaced fracture nor focal lesion. Posterior rib articulations are intact. Sternotomy wires and multiple mediastinal clips are seen. The clavicle, scapula and humerus are without fracture. There is no effusion or pneumothorax. IMPRESSION: One oblique view shows a subtle cortical step-off or loss of the cortical margin anterolaterally on the right 5th rib. I could not exclude a fracture there please correlate clinically. See my arrow on image 4. No other significant finding. <Electronically signed by Kwan Rodriguez > 12/11/20 [id number]
--- NOTE | 2020-12-11 13:12 | REP ---
INDICATION: INJURY. COMPARISON: Two-view chest today TECHNIQUE: Three views FINDINGS: AP view shows pedicles, spinous and transverse processes intact the posterior rib articulations are normal as are the medial clavicles paraspinal lines are unremarkable. The aorta is mildly tortuous but without gross aneurysm. The lateral view and swimmer's projection shows the thoracolumbar and cervicothoracic junctions normal. No compression deformity or destructive lesions noted. IMPRESSION: 1. Negative thoracic spine series for compression deformity, malalignment or other acute finding. <Electronically signed by Kwan Rodriguez > 12/11/20 [id number]
--- NOTE | 2020-12-11 13:16 | REP ---
INDICATION: INJURY. COMPARISON: None. TECHNIQUE: Five views FINDINGS: There is a gentle levorotatory curve of the lumbar spine centered at L3. The pedicles, spinous and transverse processes were grossly intact. There is facet arthropathy at L5-S1 and L4-5 less at L3-4. No bony destructive lesion or compression fracture. Disc space narrowed posteriorly at L5-S1 and also at L4-5. The other disc space heights are preserved. All vertebral body heights are preserved in the lumbar and lower thoracic spine. SI joints, sacral ala and foramina seen were grossly intact. Iliac wings intact. There is atherosclerotic calcification of the aortoiliac vessels without gross aneurysm on plain film. IMPRESSION: Some degenerative disc and facet arthritic changes lower lumbar spine with mild levorotatory curvature but no compression fracture or bony destructive lesion in the lumbar spine. Lower thoracic region grossly intact. Visualized sacrum, portions of SI joints and iliac wing seen also unremarkable <Electronically signed by Kwan Rodriguez > 12/11/20 [id number]
--- NOTE | 2020-12-11 13:20 | REP ---
INDICATION: INJURY. COMPARISON: None. TECHNIQUE: AP pelvis and two views each hip FINDINGS: AP pelvis: Pelvic ring intact SI joints show some minor sclerosis iliac margin left greater than right without narrowing or erosion. Sacral ala and foramina were unremarkable pelvic ring intact ischia and symphysis pubis unremarkable. Acetabuli appear symmetric. There are clips about the right inguinal region. Hip joint spaces symmetric. Right hip: AP and frogleg view show slight central hip joint space narrowing with preservation of the superior hip joint space. Tiny rim osteophyte acetabular roof. Femoral head neck and trochanters are unremarkable. There is vascular calcifications throughout the femoral artery visible. Left hip:AP and frogleg view show slight central hip joint space narrowing with preservation of the superior hip joint space. Tiny rim osteophyte acetabular roof. Femoral head neck and trochanters are unremarkable. There is vascular calcifications throughout the femoral artery visible. IMPRESSION: Some mild degenerative changes of the left SI joint and hips. No fracture or focal bone lesion. <Electronically signed by Kwan Rodriguez > 12/11/20 1243
[2020-12-11] MEDS ORDERED: HYDR-3713 PO (13:47)
[2020-12-11 14:01] VITALS: BP 132/83
== END 2020-12-11 14:05 | disposition home or self-care (01) ==
LOC: M ED 11:11
DX: S22.31XA Fracture of one rib, right side, initial encounter for closed fracture (principal); W19.XXXA Unspecified fall, initial encounter; Y92.018 Other place in single-family (private) house as the place of occurrence of the external cause; I10 Essential (primary) hypertension; I48.91 Unspecified atrial fibrillation; Z79.899 Other long term (current) drug therapy; Z79.01 Long term (current) use of anticoagulants; Z88.0 Allergy status to penicillin

== ENCOUNTER → 2021-01-06 | Outpatient (REF) | payer MEDICARE, MEDICAID ==
[~2021-01-06] MED LIST changes: +HYDR-3713 PO
[2021-01-06 14:01] LABS: HEMOGLOBIN A1c 5.8 %
[2021-01-06 14:05] LABS: ALBUMIN 3.9 GM/DL (3.2-5.2); ALT/SGPT 32 U/L (12-78); BILIRUBIN,TOTAL 0.2 MG/DL (0.2-1.0); BLOOD UREA NITROGEN 22 MG/DL (7-18); CARBON DIOXIDE LEVEL 29 MEQ/L (21-32); CHLORIDE LEVEL 103 MEQ/L (98-107); CHOLESTEROL LEVEL 149 MG/DL (<200); CHOLESTEROL RISK RATIO 4.027 (<5); CPK CREATINE PHOSPHOKINASE 111 U/L (39-308); CREATININE FOR GFR 1.31 MG/DL (0.70-1.30); GLOMERULAR FILTRATION RATE 57.6 (>42); GLUCOSE, FASTING 97 MG/DL (70-100); HDL CHOLESTEROL 37 MG/DL (>40); NON-HDL-C 112 MG/DL; POTASSIUM SERUM 4.5 MEQ/L (3.5-5.1); SODIUM LEVEL 139 MEQ/L (136-145); TOTAL PROTEIN 7.6 GM/DL (6.4-8.2); TRIGLYCERIDES LEVEL 610 MG/DL (<150)
[2021-01-06 14:06] LABS: C REACTIVE PROTEIN QUANTITATIV 0.36 MG/DL (0.00-0.30)
[2021-01-06 14:13] LABS: PTH INTACT 48.8 PG/ML (18.5-88.0); TOTAL 25(OH) VITAMIN D 10.6 NG/ML (30.0-100.0)
[2021-01-06 14:14] LABS: VITAMIN B12 LEVEL 458 PG/ML (247-911)
== END ==
LOC: M PLALAB 10:52
PROVIDERS: ATTEND Family Medicine
DX: E78.2 Mixed hyperlipidemia (principal); R73.01 Impaired fasting glucose; Z12.5 Encounter for screening for malignant neoplasm of prostate; N18.30 Chronic kidney disease, stage 3 unspecified
CPT/HCPCS: 36415; 80053; 80061; 82306; 82550; 82607; 83036; 83525; 83970; 86140; G0103

== ENCOUNTER → 2021-05-13 | Outpatient (CLI) | payer MEDICARE, MEDICAID ==
[2021-05-13 13:24] LABS: BASO # 0.1 10^3/uL (0.0-0.2); BASO % 0.9 % (0.0-1.0); EOS # 0.2 10^3/uL (0.0-0.5); EOS % 3.1 % (0.0-3.0); HEMATOCRIT 39.4 % (42.0-52.0); HEMOGLOBIN 12.4 g/dl (13.5-17.5); LYMPH # 1.9 10^3/uL (1.5-5.0); LYMPH % 33.6 % (24.0-44.0); MEAN CORPUSCULAR HEMOGLOBIN 30.7 pg (27.0-33.0); MEAN CORPUSCULAR HGB CONC 31.5 g/dl (32.0-36.5); MEAN CORPUSCULAR VOLUME 97.5 fl (80.0-96.0); MONO # 0.6 10^3/uL (0.0-0.8); MONO % 10.1 % (2.0-8.0); NEUTROPHILS # 2.9 10^3/uL (1.5-8.5); NEUTROPHILS % 51.8 % (36.0-66.0); PLATELET COUNT, AUTOMATED 284 10^3/uL (150-450); RED BLOOD COUNT 4.04 10^6/uL (4.30-6.10); WHITE BLOOD COUNT 5.5 10^3/uL (4.0-10.0)
[2021-05-13 13:49] LABS: HEMOGLOBIN A1c 6.1 %
[2021-05-13 14:05] LABS: BILIRUBIN,TOTAL 0.2 MG/DL (0.2-1.0); C REACTIVE PROTEIN QUANTITATIV 0.37 MG/DL (0.00-0.30); CALCIUM LEVEL 9.1 MG/DL (8.8-10.2); CHOLESTEROL RISK RATIO 4.078 (<5); CREATININE FOR GFR 1.48 MG/DL (0.70-1.30); FREE T4 0.81 NG/DL (0.76-1.46); POTASSIUM SERUM 4.4 MEQ/L (3.5-5.1); THYROID STIMULATING HORMONE 2.53 uIU/ML (0.358-3.740)
[2021-05-13 14:06] LABS: PTH INTACT 99.3 PG/ML (18.5-88.0); TOTAL 25(OH) VITAMIN D 13.2 NG/ML (30.0-100.0)
== END ==
LOC: M PLALAB 09:40
PROVIDERS: ATTEND Physician Assistant
DX: I10 Essential (primary) hypertension (principal); E78.2 Mixed hyperlipidemia; R73.01 Impaired fasting glucose; E55.9 Vitamin D deficiency, unspecified; E03.9 Hypothyroidism, unspecified
CPT/HCPCS: 36415; 80053; 80061; 82306; 82550; 83036; 83525; 83970; 84439; 84443; 85025; 86140; G0103

== ENCOUNTER → 2021-10-12 | Outpatient (CLI) | payer MEDICARE ==
[~2021-10-12] MED LIST changes: -KLOR10TA76 PO; +POTA-136 PO
[2021-10-12 13:30] LABS: BASO % 0.5 % (0.0-1.0); EOS # 0.2 10^3/uL (0.0-0.5); EOS % 3.2 % (0.0-3.0); HEMATOCRIT 40.1 % (42.0-52.0); HEMOGLOBIN 12.7 g/dl (13.5-17.5); LYMPH # 2.1 10^3/uL (1.5-5.0); LYMPH % 35.6 % (24.0-44.0); MEAN CORPUSCULAR HEMOGLOBIN 30.5 pg (27.0-33.0); MEAN CORPUSCULAR HGB CONC 31.7 g/dl (32.0-36.5); MEAN CORPUSCULAR VOLUME 96.2 fl (80.0-96.0); MONO # 0.5 10^3/uL (0.0-0.8); MONO % 8.3 % (2.0-8.0); NEUTROPHILS # 3.1 10^3/uL (1.5-8.5); NEUTROPHILS % 52.1 % (36.0-66.0); PLATELET COUNT, AUTOMATED 248 10^3/uL (150-450); RED BLOOD COUNT 4.17 10^6/uL (4.30-6.10); WHITE BLOOD COUNT 5.9 10^3/uL (4.0-10.0)
[2021-10-12 13:47] LABS: HEMOGLOBIN A1c 5.8 %
[2021-10-12 14:13] LABS: ALBUMIN 3.7 GM/DL (3.2-5.2); ALT/SGPT 52 U/L (12-78); BILIRUBIN,TOTAL 0.1 MG/DL (0.2-1.0); BLOOD UREA NITROGEN 17 MG/DL (7-18); CALCIUM LEVEL 9.5 MG/DL (8.8-10.2); CARBON DIOXIDE LEVEL 30 MEQ/L (21-32); CHLORIDE LEVEL 104 MEQ/L (98-107); CREATININE FOR GFR 1.31 MG/DL (0.70-1.30); FERRITIN 69 NG/ML (26-388); FREE T4 0.81 NG/DL (0.76-1.46); GLOMERULAR FILTRATION RATE 57.4 (>42); GLUCOSE, FASTING 93 MG/DL (70-100); POTASSIUM SERUM 4.4 MEQ/L (3.5-5.1); SODIUM LEVEL 140 MEQ/L (136-145); TOTAL PROTEIN 7.4 GM/DL (6.4-8.2)
[2021-10-12 14:14] LABS: PTH INTACT 59.1 PG/ML (18.5-88.0); VITAMIN B12 LEVEL 328 PG/ML (247-911)
[2021-10-13 09:52] LABS: ALBUMIN 4.14 GM/DL (3.29-5.55); ALPHA-1-GLOBULIN % 4.9 % (2.9-4.9); ALPHA-1-GLOBULINS 0.36 GM/DL (0.17-0.41); ALPHA-2-GLOBULINS 0.66 GM/DL (0.42-0.99); ALPHA-2-GLOBULINS % 8.9 % (7.1-11.8); BETA-1-GLOBULINS 0.49 GM/DL (0.28-0.60); BETA-1-GLOBULINS % 6.6 % (4.7-7.2); BETA-2-GLOBULINS 0.46 GM/DL (0.19-0.55); BETA-2-GLOBULINS % 6.2 % (3.2-6.5); GAMMA GLOBULIN % 17.4 % (11.1-18.8); GAMMA GLOBULINS 1.29 GM/DL (0.65-1.58)
== END ==
LOC: M PLALAB 09:40
PROVIDERS: ATTEND Family Medicine
DX: D75.89 Other specified diseases of blood and blood-forming organs (principal); R73.01 Impaired fasting glucose; E53.8 Deficiency of other specified B group vitamins; N18.30 Chronic kidney disease, stage 3 unspecified; E03.9 Hypothyroidism, unspecified

== ENCOUNTER → 2022-02-14 | Outpatient (CLI) | payer MEDICARE, MEDICAID ==
[2022-02-14 14:47] LABS: BASO % 0.7 % (0.0-1.0); EOS # 0.1 10^3/uL (0.0-0.5); EOS % 1.8 % (0.0-3.0); HEMATOCRIT 40.2 % (42.0-52.0); HEMOGLOBIN 12.8 g/dl (13.5-17.5); LYMPH # 1.8 10^3/uL (1.5-5.0); LYMPH % 29.9 % (24.0-44.0); MEAN CORPUSCULAR HEMOGLOBIN 30.7 pg (27.0-33.0); MEAN CORPUSCULAR HGB CONC 31.8 g/dl (32.0-36.5); MEAN CORPUSCULAR VOLUME 96.4 fl (80.0-96.0); MONO # 0.4 10^3/uL (0.0-0.8); MONO % 6.8 % (2.0-8.0); NEUTROPHILS # 3.7 10^3/uL (1.5-8.5); NEUTROPHILS % 60.6 % (36.0-66.0); PLATELET COUNT, AUTOMATED 233 10^3/uL (150-450); RED BLOOD COUNT 4.17 10^6/uL (4.30-6.10); WHITE BLOOD COUNT 6.1 10^3/uL (4.0-10.0)
[2022-02-14 14:55] LABS: HEMATOCRIT 39.5 % (42.0-52.0)
[2022-02-14 15:18] LABS: ALBUMIN 3.9 GM/DL (3.2-5.2); BILIRUBIN,TOTAL 0.4 MG/DL (0.2-1.0); CALCIUM LEVEL 9.2 MG/DL (8.8-10.2); CHOLESTEROL RISK RATIO 2.55 (<5); CREATININE FOR GFR 1.39 MG/DL (0.70-1.30); GLOMERULAR FILTRATION RATE 53.6 (>42); POTASSIUM SERUM 4.6 MEQ/L (3.5-5.1); TOTAL PROTEIN 7.5 GM/DL (6.4-8.2)
[2022-02-14 15:19] LABS: MALB URINE SIEMENS 54.5 MG/L
[2022-02-14 15:35] LABS: HEMOGLOBIN A1c 5.7 %
== END ==
LOC: M PLALAB 11:02
PROVIDERS: ATTEND Family Medicine
DX: E11.9 Type 2 diabetes mellitus without complications (principal); E53.8 Deficiency of other specified B group vitamins

== ENCOUNTER → 2022-06-07 | Outpatient (CLI) | payer MEDICARE, MEDICAID ==
[2022-06-07 13:23] LABS: BASO % 0.6 % (0.0-1.0); EOS # 0.2 10^3/uL (0.0-0.5); EOS % 2.8 % (0.0-3.0); HEMATOCRIT 41.2 % (42.0-52.0); HEMOGLOBIN 13.2 g/dl (13.5-17.5); LYMPH % 31.1 % (24.0-44.0); MEAN CORPUSCULAR HEMOGLOBIN 30.6 pg (27.0-33.0); MEAN CORPUSCULAR VOLUME 95.4 fl (80.0-96.0); MONO # 0.5 10^3/uL (0.0-0.8); MONO % 7.1 % (2.0-8.0); NEUTROPHILS # 3.8 10^3/uL (1.5-8.5); NEUTROPHILS % 58.1 % (36.0-66.0); PLATELET COUNT, AUTOMATED 256 10^3/uL (150-450); RED BLOOD COUNT 4.32 10^6/uL (4.30-6.10); WHITE BLOOD COUNT 6.5 10^3/uL (4.0-10.0)
[2022-06-07 13:43] LABS: ALBUMIN 3.9 GM/DL (3.2-5.2); BILIRUBIN,TOTAL 0.3 MG/DL (0.2-1.0); CALCIUM LEVEL 9.4 MG/DL (8.8-10.2); CREATININE FOR GFR 1.65 MG/DL (0.70-1.30); FREE T4 0.83 NG/DL (0.76-1.46); POTASSIUM SERUM 4.7 MEQ/L (3.5-5.1); THYROID STIMULATING HORMONE 2.97 uIU/ML (0.358-3.740); TOTAL PROTEIN 7.9 GM/DL (6.4-8.2)
[2022-06-07 14:15] LABS: TOTAL 25(OH) VITAMIN D 17.8 NG/ML (30.0-100.0)
[2022-06-07 14:18] LABS: PTH INTACT 83.7 PG/ML (18.5-88.0)
== END ==
LOC: M PLALAB 09:40
PROVIDERS: ATTEND Family Medicine
DX: E11.9 Type 2 diabetes mellitus without complications (principal); N18.30 Chronic kidney disease, stage 3 unspecified; E03.9 Hypothyroidism, unspecified; E55.9 Vitamin D deficiency, unspecified; Z12.5 Encounter for screening for malignant neoplasm of prostate
CPT/HCPCS: 36415; 80053; 82306; 83036; 83970; 84439; 84443; 85025; G0103

== ENCOUNTER → 2022-10-13 | Outpatient (CLI) | payer MEDICARE, MEDICAID ==
[~2022-10-13] MED LIST changes: +CLOP75TA99 PO; -PLAV1TAB2 PO
[2022-10-13 14:25] LABS: BASO % 0.5 % (0.0-1.0); EOS # 0.2 10^3/uL (0.0-0.5); EOS % 2.7 % (0.0-3.0); HEMATOCRIT 39.9 % (42.0-52.0); HEMOGLOBIN 12.6 g/dl (13.5-17.5); LYMPH % 29.8 % (24.0-44.0); MEAN CORPUSCULAR HEMOGLOBIN 30.1 pg (27.0-33.0); MEAN CORPUSCULAR HGB CONC 31.6 g/dl (32.0-36.5); MEAN CORPUSCULAR VOLUME 95.5 fl (80.0-96.0); MONO # 0.5 10^3/uL (0.0-0.8); NEUTROPHILS # 3.9 10^3/uL (1.5-8.5); NEUTROPHILS % 58.7 % (36.0-66.0); PLATELET COUNT, AUTOMATED 231 10^3/uL (150-450); RED BLOOD COUNT 4.18 10^6/uL (4.30-6.10); WHITE BLOOD COUNT 6.6 10^3/uL (4.0-10.0)
[2022-10-13 14:47] LABS: CHOLESTEROL RISK RATIO 3.11 (<5); LDL CHOLESTEROL 13.8 MG/DL (<100)
[2022-10-13 14:50] LABS: FERRITIN 69.2 NG/ML (10.5-307.3)
[2022-10-13 15:12] LABS: CREATININE, URINE 321.9 MG/DL; MAU/CREAT RATIO 13.3 MCG/MG (0.0-30.0)
[2022-10-13 16:04] LABS: HEMOGLOBIN A1c 5.8 % (4.0-6.0)
== END ==
LOC: M PLALAB 11:00
PROVIDERS: ATTEND Family Medicine
DX: E78.2 Mixed hyperlipidemia (principal); E53.8 Deficiency of other specified B group vitamins; I10 Essential (primary) hypertension; E11.9 Type 2 diabetes mellitus without complications

== ENCOUNTER → 2022-10-25 | Outpatient (CLI) | payer MEDICARE, MEDICAID | LOC: M PLAIMG 10:24 | PROVIDERS: ATTEND Family Medicine | DX: M19.032 Primary osteoarthritis, left wrist (principal) ==

== ENCOUNTER → 2023-02-09 | Outpatient (CLI) | payer MEDICARE ==
[2023-02-09 14:36] LABS: BASO % 0.7 % (0.0-1.0); EOS # 0.2 10^3/uL (0.0-0.5); EOS % 3.7 % (0.0-3.0); HEMATOCRIT 39.4 % (42.0-52.0); HEMOGLOBIN 12.3 g/dl (13.5-17.5); LYMPH # 1.9 10^3/uL (1.5-5.0); LYMPH % 33.2 % (24.0-44.0); MEAN CORPUSCULAR HEMOGLOBIN 30.2 pg (27.0-33.0); MEAN CORPUSCULAR HGB CONC 31.2 g/dl (32.0-36.5); MEAN CORPUSCULAR VOLUME 96.8 fl (80.0-96.0); MONO # 0.5 10^3/uL (0.0-0.8); NEUTROPHILS # 3.1 10^3/uL (1.5-8.5); NEUTROPHILS % 53.9 % (36.0-66.0); PLATELET COUNT, AUTOMATED 247 10^3/uL (150-450); RED BLOOD COUNT 4.07 10^6/uL (4.30-6.10); WHITE BLOOD COUNT 5.7 10^3/uL (4.0-10.0)
[2023-02-09 15:01] LABS: ALBUMIN 3.9 G/DL (3.2-5.2); BILIRUBIN,TOTAL 0.2 MG/DL (0.3-1.2); CREATININE FOR GFR 1.27 MG/DL (0.70-1.30); GLOMERULAR FILTRATION RATE 59.3 (>42); MAGNESIUM LEVEL 1.8 MG/DL (1.8-2.4); POTASSIUM SERUM 4.5 MMOL/L (3.5-5.1); TOTAL PROTEIN 7.4 G/DL (5.7-8.2)
[2023-02-09 15:03] LABS: URIC ACID 5.6 MG/DL (3.7-9.2)
[2023-02-10 19:08] LABS: ERYTHROPOIETIN 22.6 mIU/mL (2.6-18.5)
== END ==
LOC: M PLALAB 10:50
PROVIDERS: ATTEND Family Medicine
DX: E53.8 Deficiency of other specified B group vitamins (principal); I10 Essential (primary) hypertension; E11.9 Type 2 diabetes mellitus without complications; M19.039 Primary osteoarthritis, unspecified wrist

== ENCOUNTER → 2023-03-29 | Outpatient (REF) | payer MEDICARE, MEDICAID | LOC: M SFHCPLAZ 09:44 | PROVIDERS: ATTEND Family Medicine | DX: E78.2 Mixed hyperlipidemia (principal); E53.8 Deficiency of other specified B group vitamins; E03.9 Hypothyroidism, unspecified; Z12.5 Encounter for screening for malignant neoplasm of prostate ==

== ENCOUNTER → 2023-08-07 | Outpatient (REF) | payer MEDICARE, MEDICAID | LOC: M SFHCPLAZ 09:05 | PROVIDERS: ATTEND Family Medicine | DX: E53.8 Deficiency of other specified B group vitamins (principal); I10 Essential (primary) hypertension; E11.9 Type 2 diabetes mellitus without complications; Z53.9 Procedure and treatment not carried out, unspecified reason ==

== ENCOUNTER → 2023-11-27 | Outpatient (CLI) | payer MEDICARE, MEDICAID ==
[2023-11-27 11:45] LABS: BASO % 0.5 % (0.0-1.0); EOS # 0.2 10^3/uL (0.0-0.5); EOS % 3.8 % (0.0-3.0); HEMATOCRIT 39.2 % (42.0-52.0); HEMOGLOBIN 12.5 g/dl (13.5-17.5); LYMPH # 1.9 10^3/uL (1.5-5.0); MEAN CORPUSCULAR HEMOGLOBIN 30.6 pg (27.0-33.0); MEAN CORPUSCULAR HGB CONC 31.9 g/dl (32.0-36.5); MEAN CORPUSCULAR VOLUME 96.1 fl (80.0-96.0); MONO # 0.5 10^3/uL (0.0-0.8); NEUTROPHILS # 3.4 10^3/uL (1.5-8.5); NEUTROPHILS % 56.4 % (36.0-66.0); PLATELET COUNT, AUTOMATED 223 10^3/uL (150-450); RED BLOOD COUNT 4.08 10^6/uL (4.30-6.10)
[2023-11-27 12:09] LABS: HEMOGLOBIN A1c 6.2 % (4.0-6.0)
[2023-11-27 12:17] LABS: CREATININE, URINE 171.9 MG/DL; MAU/CREAT RATIO 8.7 MCG/MG (0.0-30.0)
[2023-11-27 12:20] LABS: BILIRUBIN,TOTAL 0.3 MG/DL (0.3-1.2); CALCIUM LEVEL 9.3 MG/DL (8.3-10.6); CREATININE FOR GFR 1.28 MG/DL (0.70-1.30); FERRITIN 54.5 NG/ML (10.5-307.3); GLOMERULAR FILTRATION RATE 58.6 (>42); POTASSIUM SERUM 4.3 MMOL/L (3.5-5.1); TOTAL PROTEIN 7.4 G/DL (5.7-8.2)
== END ==
LOC: M PLALAB 08:13
PROVIDERS: ATTEND Family Medicine
DX: E53.8 Deficiency of other specified B group vitamins (principal); I10 Essential (primary) hypertension; E11.9 Type 2 diabetes mellitus without complications

== ENCOUNTER → 2024-01-23 | Outpatient (REF) | payer MEDICARE, MEDICAID | LOC: M SFHCPLAZ 11:44 | PROVIDERS: ATTEND Family Medicine | DX: E11.9 Type 2 diabetes mellitus without complications (principal); I10 Essential (primary) hypertension; E53.8 Deficiency of other specified B group vitamins; I25.810 Atherosclerosis of coronary artery bypass graft(s) without angina pectoris; Z12.5 Encounter for screening for malignant neoplasm of prostate ==

== ENCOUNTER → 2024-06-25 | Outpatient (CLI) | payer MEDICARE, MEDICAID ==
[2024-06-25 13:15] LABS: BASO % 0.5 % (0.0-1.0); EOS # 0.2 10^3/uL (0.0-0.5); HEMATOCRIT 43.9 % (42.0-52.0); LYMPH # 1.5 10^3/uL (1.5-5.0); LYMPH % 26.3 % (24.0-44.0); MEAN CORPUSCULAR HEMOGLOBIN 30.1 pg (27.0-33.0); MEAN CORPUSCULAR HGB CONC 31.9 g/dl (32.0-36.5); MEAN CORPUSCULAR VOLUME 94.4 fl (80.0-96.0); MONO # 0.5 10^3/uL (0.0-0.8); MONO % 9.1 % (2.0-8.0); NEUTROPHILS # 3.4 10^3/uL (1.5-8.5); NEUTROPHILS % 60.9 % (36.0-66.0); PLATELET COUNT, AUTOMATED 271 10^3/uL (150-450); PSA SCREENING 0.18 NG/ML (< 4.00); RED BLOOD COUNT 4.65 10^6/uL (4.30-6.10); WHITE BLOOD COUNT 5.6 10^3/uL (4.0-10.0)
[2024-06-25 13:18] LABS: ALBUMIN 4.1 G/DL (3.2-5.2); BILIRUBIN,TOTAL 0.4 MG/DL (0.3-1.2); CALCIUM LEVEL 10.1 MG/DL (8.3-10.6); CREATININE FOR GFR 1.53 MG/DL (0.70-1.30); GLOMERULAR FILTRATION RATE 47.7 (>42); POTASSIUM SERUM 4.3 MMOL/L (3.5-5.1); TOTAL PROTEIN 7.9 G/DL (5.7-8.2)
[2024-06-25 13:19] LABS: FERRITIN 64.1 NG/ML (10.5-307.3)
== END ==
LOC: M PLALAB 09:25
PROVIDERS: ATTEND Family Medicine
DX: E53.8 Deficiency of other specified B group vitamins (principal); Z12.5 Encounter for screening for malignant neoplasm of prostate; I25.810 Atherosclerosis of coronary artery bypass graft(s) without angina pectoris; I10 Essential (primary) hypertension; E11.9 Type 2 diabetes mellitus without complications; I50.32 Chronic diastolic (congestive) heart failure
CPT/HCPCS: 36415; 80053; 82728; 83036; 83735; 83880; 85025; G0103

== ENCOUNTER → 2025-01-09 | Outpatient (CLI) | payer MEDICARE, MEDICAID ==
[~2025-01-09] MED LIST changes: -CYCL5TAB PO; +CYCL5TAB4 PO
[2025-01-09 14:27] LABS: BASO % 0.5 % (0.0-1.0); EOS # 0.1 10^3/uL (0.0-0.5); EOS % 2.1 % (0.0-3.0); HEMATOCRIT 42.1 % (42.0-52.0); HEMOGLOBIN 13.8 g/dl (13.5-17.5); LYMPH # 1.7 10^3/uL (1.5-5.0); LYMPH % 28.4 % (24.0-44.0); MEAN CORPUSCULAR HEMOGLOBIN 30.9 pg (27.0-33.0); MEAN CORPUSCULAR HGB CONC 32.8 g/dl (32.0-36.5); MEAN CORPUSCULAR VOLUME 94.2 fl (80.0-96.0); MONO # 0.5 10^3/uL (0.0-0.8); MONO % 8.3 % (2.0-8.0); NEUTROPHILS # 3.7 10^3/uL (1.5-8.5); NEUTROPHILS % 60.4 % (36.0-66.0); PLATELET COUNT, AUTOMATED 255 10^3/uL (150-450); RED BLOOD COUNT 4.47 10^6/uL (4.30-6.10); WHITE BLOOD COUNT 6.1 10^3/uL (4.0-10.0)
[2025-01-09 14:53] LABS: BILIRUBIN,TOTAL 0.3 MG/DL (0.3-1.2); CALCIUM LEVEL 9.5 MG/DL (8.3-10.6); CREATININE FOR GFR 1.33 MG/DL (0.70-1.30); POTASSIUM SERUM 4.5 MMOL/L (3.5-5.1); PTH INTACT 104.9 PG/ML (18.5-88.0)
[2025-01-09 14:55] LABS: TOTAL 25(OH) VITAMIN D 18.6 NG/ML (20.0-100.0)
[2025-01-09 14:59] LABS: HEMOGLOBIN A1c 5.6 % (4.0-6.0)
[2025-01-10 18:49] LABS: PROTEIN, TOTAL SO 8.1 g/dL (6.1-8.1)
[2025-01-13 17:13] LABS: FREE KAPPA LIGHT CHAINS SERUM 42.9 mg/L (3.3-19.4); KAPPA/LAMBDA RATIO SERUM 1.53 (0.26-1.65)
[2025-01-14 06:18] LABS: ALBUMIN SO 4.5 g/dL (3.8-4.8); ALPHA 1 GLOBULINS SO 0.2 g/dL (0.2-0.3); ALPHA 2 GLOBULINS SO 0.8 g/dL (0.5-0.9); BETA 2 GLOBULIN SO 0.5 g/dL (0.2-0.5); BETA GLOBULIN SO 0.6 g/dL (0.4-0.6); GAMMA GLOBULINS SO 1.5 g/dL (0.8-1.7)
== END ==
LOC: M PLALAB 09:33
PROVIDERS: ATTEND Family Medicine
DX: E53.8 Deficiency of other specified B group vitamins (principal); I10 Essential (primary) hypertension; E11.9 Type 2 diabetes mellitus without complications; I25.810 Atherosclerosis of coronary artery bypass graft(s) without angina pectoris; E55.9 Vitamin D deficiency, unspecified; K76.0 Fatty (change of) liver, not elsewhere classified; I50.32 Chronic diastolic (congestive) heart failure

== ENCOUNTER → 2025-05-12 | Outpatient (CLI) | payer MEDICARE, MEDICAID ==
[2025-05-12 10:51] LABS: BASO # 0.0 10^3/uL (0.0-0.2); BASO % 0.5 % (0.0-1.0); EOS # 0.2 10^3/uL (0.0-0.5); EOS % 2.6 % (0.0-3.0); LYMPH # 2.1 10^3/uL (1.5-5.0); LYMPH % 28.7 % (24.0-44.0); MONO # 0.6 10^3/uL (0.0-0.8); MONO % 7.5 % (2.0-8.0); NEUTROPHILS # 4.4 10^3/uL (1.5-8.5); NEUTROPHILS % 60.3 % (36.0-66.0); PLATELET COUNT, AUTOMATED 239 10^3/uL (150-450)
[2025-05-12 11:02] LABS: ESTIMATED AVERAGE GLUCOSE 128.0 MG/DL (60-110)
[2025-05-12 11:20] LABS: PSA SCREENING 0.12 NG/ML (< 4.00)
[2025-05-12 11:24] LABS: ALT/SGPT 29.0 U/L (7.0-40); AST/SGOT 26.0 U/L (<34); CALCIUM LEVEL 9.6 MG/DL (8.3-10.6); CARBON DIOXIDE LEVEL 27.0 MMOL/L (20-31); CHLORIDE LEVEL 104.0 MMOL/L (98-107); CHOLESTEROL LEVEL 124.0 MG/DL (<200); CHOLESTEROL RISK RATIO 3.27 (<5); CREATININE FOR GFR 1.39 MG/DL (0.70-1.30); FREE T4 0.84 NG/DL (0.89-1.76); GLOMERULAR FILTRATION RATE 53.2 (>42); LDL CHOLESTEROL 10.7 MG/DL (<100); NON-HDL-C 86.1 MG/DL; POTASSIUM SERUM 4.6 MMOL/L (3.5-5.1); PTH INTACT 72.5 PG/ML (18.5-88.0); SODIUM LEVEL 143.0 MMOL/L (136-145); TRIGLYCERIDES LEVEL 377.0 MG/DL (<150)
[2025-05-12 11:26] LABS: TOTAL 25(OH) VITAMIN D 27.6 NG/ML (20.0-100.0)
== END ==
LOC: M PLALAB 08:13
PROVIDERS: ATTEND Family Medicine
DX: E53.8 Deficiency of other specified B group vitamins (principal); I10 Essential (primary) hypertension; E11.9 Type 2 diabetes mellitus without complications; E55.9 Vitamin D deficiency, unspecified; I25.810 Atherosclerosis of coronary artery bypass graft(s) without angina pectoris; E78.2 Mixed hyperlipidemia; Z12.5 Encounter for screening for malignant neoplasm of prostate; E03.9 Hypothyroidism, unspecified; I50.32 Chronic diastolic (congestive) heart failure
CPT/HCPCS: 36415; 80053; 80061; 82306; 82728; 83036; 83880; 83970; 84439; 84443; 85025; G0103

== ENCOUNTER → 2025-09-15 | Outpatient (CLI) | payer MEDICARE, MEDICAID | LOC: M CARPUL 12:04 | PROVIDERS: ATTEND Registered Nurse | DX: I77.810 Thoracic aortic ectasia (principal); I34.0 Nonrheumatic mitral (valve) insufficiency ==

== ENCOUNTER → 2025-10-02 | Outpatient (CLI) | payer MEDICARE, MEDICAID ==
[2025-10-02 10:54] LABS: BASO # 0.0 10^3/uL (0.0-0.2); BASO % 0.5 % (0.0-1.0); EOS # 0.2 10^3/uL (0.0-0.5); EOS % 3.3 % (0.0-3.0); LYMPH # 1.7 10^3/uL (1.5-5.0); LYMPH % 31.4 % (24.0-44.0); MONO # 0.4 10^3/uL (0.0-0.8); MONO % 7.7 % (2.0-8.0); NEUTROPHILS # 3.1 10^3/uL (1.5-8.5); NEUTROPHILS % 56.7 % (36.0-66.0); PLATELET COUNT, AUTOMATED 274 10^3/uL (150-450)
[2025-10-02 11:19] LABS: ESTIMATED AVERAGE GLUCOSE 123.0 MG/DL (60-110)
[2025-10-02 11:22] LABS: ALT/SGPT 22 U/L (7.0-40); AST/SGOT 23 U/L (<34); CALCIUM LEVEL 9.0 MG/DL (8.3-10.6); CARBON DIOXIDE LEVEL 29 MMOL/L (20-31); CHLORIDE LEVEL 102 MMOL/L (98-107); CHOLESTEROL LEVEL 172 MG/DL (<200); CHOLESTEROL RISK RATIO 4.84 (<5); CREATININE FOR GFR 1.36 MG/DL (0.70-1.30); GLOMERULAR FILTRATION RATE 54.3 (>42); NON-HDL-C 136.5 MG/DL; POTASSIUM SERUM 4.5 MMOL/L (3.5-5.1); SODIUM LEVEL 140 MMOL/L (136-145); TRIGLYCERIDES LEVEL 515 MG/DL (<150)
[2025-10-02 11:23] LABS: PTH INTACT 98.8 PG/ML (18.5-88.0)
[2025-10-02 11:27] LABS: FREE T4 0.98 NG/DL (0.89-1.76); TOTAL 25(OH) VITAMIN D 22.4 NG/ML (20.0-100.0)
== END ==
LOC: M PLALAB 09:26
PROVIDERS: ATTEND Family Medicine
DX: E53.8 Deficiency of other specified B group vitamins (principal); I10 Essential (primary) hypertension; E03.9 Hypothyroidism, unspecified; E11.9 Type 2 diabetes mellitus without complications; E78.2 Mixed hyperlipidemia; E55.9 Vitamin D deficiency, unspecified; I25.810 Atherosclerosis of coronary artery bypass graft(s) without angina pectoris; K74.00 Hepatic fibrosis, unspecified; I50.32 Chronic diastolic (congestive) heart failure